=== PATIENT | female | born 1960 | race African-American/Black ===

== ENCOUNTER 2023-04-25 08:04 | Emergency (ER) | payer OTHER, SELFPAY ==
--- NOTE | ~2023-04-25 | XR_ITS ---
EXAMINATION: XR lumbar spine 2-3V DATE: 04/25/2023 09:08 INDICATION: Chronic right sciatica TECHNIQUE: Anteroposterior and lateral views of the lumbar spine, and cone-down lateral view of the l umbosacral junction were obtained. COMPARISON: None. FINDINGS: Bone alignment is normal. There is no fracture. The vertebral body heights are maintained. There is mild loss of intervertebral disc space height at L5-S1. There is mild facet joint osteoarthr itis of the lower lumbar spine. A neurostimulator device is implanted in the posterior subcutaneous t issues on the right. Its lead enters the left pelvis at the level of S3. Surgical clips in the right upper quadrant are likely from prior cholecystectomy. IMPRESSION: 1. Mild lumbar spondylosis without acute findings. Reviewed, dictated and finalized at location A.
--- NOTE | ~2023-04-25 | XR_ITS ---
EXAMINATION: XR knee RT 3V DATE: 04/25/2023 09:07 INDICATION: Right knee pain TECHNIQUE: Three views of the right knee were obtained. COMPARISON: None. FINDINGS: Alignment is normal. No fracture or osteochondral lesion. Joint spaces are normal with no e rosions. No joint effusion/synovitis. Soft tissues are unremarkable. IMPRESSION: 1. No acute osseous abnormality. Reviewed, dictated and finalized at location A.
[2023-04-25 08:11] VITALS: BP 135/91; PULSE 91; RESP 16; TEMP 36.8; O2SAT 99
[2023-04-25] MEDS: HYDROcodone/acetaminophen (*CRX) 5-325 MG TABLET 1 TAB PO (08:44)
--- NOTE | 2023-04-25 09:54 | ED.GENADULT ---
HPI - General Adult General Chief complaint: Back Pain/Injury Stated complaint: right hip injury Time Seen by Provider: 04/25/23 08:13 History of Present Illness HPI narrative: Patient is a 62-year-old female who presents ER with right low back pain and right knee pain. Reports has been a chronic issue that worsened recently. She has been on steroids that did not improve her discomfort. She would like to try something else to see if it improves her discomfort. She also reports long history of sciatica. Denies fevers or chills or sweats. No recent trauma. She has no saddle anesthesia. No difficulty with urination or defecation. No knee swelling. No redness. Pain is worsened with walking and bending. He rates from the right hip and low back down towards the knee. She also has resting knee pain. Related Data Allergies Allergy/AdvReac Type Severity Reaction Status Date / Time No Known Allergies Allergy Verified 04/25/23 08:13 Review of Systems Review of Systems: All systems reviewed & are unremarkable except as noted in HPI and below Constitutional: Constitutional: Denies chills and Denies fever(s) Musculoskeletal: Musculoskeletal: Reports back pain, Reports arthralgias, Denies joint swelling and Denies muscle cramps Integumentary/Breasts: Skin/Breast: Denies erythema, Denies rash and Denies skin ulcer Neurologic: Denies headache(s), Denies focal weakness and Denies numbness PMFSH Past Medical History Medical History (Updated 04/25/23 @ 19:41 by Jann Sharpe MD) History of fibromyalgia Sciatica Surgical History Surgical History (Updated 04/25/23 @ 19:41 by Jann Sharpe MD) History of cholecystectomy Exam Narrative: GENERAL: Well-appearing, well-nourished, and in no acute distress. HEAD: Normocephalic, atraumatic. CHEST: Clear to auscultation. No respiratory distress. HEART: Regular rate and rhythm. Normal peripheral pulses. Back: No reproducible midline tenderness to the T/L-spine. There is right paraspinal muscle pain right at the SI region in the low back. It reproduces patient's pain. EXTREMITIES: Normal range of motion. No edema. No redness or effusion of the right knee. SKIN: Warm, dry, no rash. NEURO: Alert and oriented x3. PSYCH: Normal mood and affect. Course Course Emergency Course: No real change in discomfort with [place]. Patient has already been on steroids and do not wish to add additional. Discussed addition of muscle relaxer and patient feels this is adequate. She will follow-up with her PCP. Vital Signs Vital signs: Vital Signs Temperature 98.2 F 04/25/23 08:11 Pulse Rate 91 04/25/23 08:11 Respiratory Rate 16 04/25/23 08:11 Blood Pressure 135/91 H 04/25/23 08:11 Pulse Oximetry 99 04/25/23 08:11 Temperature 98.2 F 04/25/23 08:11 Pulse Rate 91 04/25/23 08:11 Respiratory Rate 16 04/25/23 08:11 Blood Pressure 135/91 H 04/25/23 08:11 Pulse Oximetry 99 04/25/23 08:11 Medical Decision Making Vital Signs Vital Signs: Vital Signs Temperature 98.2 F 04/25/23 08:11 Pulse Rate 91 04/25/23 08:11 Respiratory Rate 16 04/25/23 08:11 Blood Pressure 135/91 H 04/25/23 08:11 Pulse Oximetry 99 04/25/23 08:11 Temperature 98.2 F 04/25/23 08:11 Pulse Rate 91 04/25/23 08:11 Respiratory Rate 16 04/25/23 08:11 Blood Pressure 135/91 H 04/25/23 08:11 Pulse Oximetry 99 04/25/23 08:11 Discharge Plan Discharge Clinical Impression: Sciatica, Knee pain Patient Disposition: Home, Self-Care Condition: Stable Instructions: Sciatica (ED), Knee Pain (ED) Additional Instructions: Return to the ER if you have increased pain in your back, you develop lower extremity weakness/numbness/paralysis, you have numbness or tingling in your private parts, or you are unable to control your ability to urinate/stool. Prescriptions: New cyclobenzaprine 10 mg tablet 10 mg PO TID PRN (Reason: musc
== END 2023-04-25 10:23 | disposition home or self-care (01) ==
PROVIDERS: Emergency Provider Emergency Medicine; PCP Family Medicine
DX: M54.41 Lumbago with sciatica, right side (principal); M25.561 Pain in right knee; M79.7 Fibromyalgia; Z90.49 Acquired absence of other specified parts of digestive tract
CPT/HCPCS: 72100; 73562; 99284; A9270

== ENCOUNTER 2023-09-03 09:02 | Emergency (ER) | payer OTHER, SELFPAY ==
--- NOTE | ~2023-09-03 | CT_ITS ---
EXAMINATION: CT abdomen pelvis w con DATE: 09/03/2023 10:54 INDICATION: Nonhealing localized abdominal pain TECHNIQUE: Computed tomography (CT) of the abdomen and pelvis was performed without intravenous contr ast. The dose-length product was 455.72 mGy-cm. Automated exposure control and iterative reconstructi on technique were employed. COMPARISON: None. FINDINGS: There is dependent atelectasis. Heart size normal. No significant pleural or pericardial ef fusion. Small fat-containing umbilical hernia. Status post cholecystectomy. The liver, spleen, pancre as, adrenal glands and right kidney are unremarkable. There is a left renal cyst. Bladder is not well distended for evaluation of bladder wall thickening. There is a left transvenous sacral stimulator l ead in the pelvis. No significant vascular abnormality. No lymphadenopathy. There are probable uterin e fibroids. Retroverted uterus. IMPRESSION: 1. Retroverted uterus with uterine fibroids. 2: No acute abdominal abnormality. Reviewed, dictated and finalized at location A.
[2023-09-03 09:10] VITALS: BP 132/76; PULSE 106; RESP 20; TEMP 37; O2SAT 99
--- NOTE | 2023-09-03 09:27 | ED.ABDPAIN ---
HPI - Abdominal Pain General Chief Complaint: Abdominal Pain Stated Complaint: abdominal pain Time Seen by Provider: 09/03/23 09:10 History of Present Illness HPI narrative: Patient is a 62-year-old female who presents to the ER with diffuse abdominal cramping. Reports it is a longstanding issue but is worsened over the last days. Spoke with her PCP and recommend she be evaluated for diverticulitis. As intermittent diarrhea. No fevers chills or sweats. No blood in stool. No emesis. No alleviating factors. Related Data Allergies Allergy/AdvReac Type Severity Reaction Status Date / Time atorvastatin Allergy Itching Verified 09/03/23 09:14 Review of Systems Review of Systems: All systems reviewed & are unremarkable except as noted in HPI and below Constitutional: Constitutional: Denies chills, Denies fatigue and Denies fever(s) Cardiovascular: Cardiovascular: Denies chest pain, Denies rapid heart rate and Denies radiating jaw, neck or arm pain Respiratory: Respiratory: Denies cough and Denies dyspnea Gastrointestinal: Gastrointestinal: Reports abdominal pain, Reports diarrhea, Denies nausea and Denies vomiting Genitourinary: Genitourinary: Reports no additional female genitourinary complaints PMFSH Past Medical History Medical History (Updated 09/03/23 @ 11:58 by Jann Sharpe MD) History of fibromyalgia Sciatica Surgical History Surgical History (Updated 04/25/23 @ 19:41 by Jann Sharpe MD) History of cholecystectomy Exam Narrative: GENERAL: Well-appearing, well-nourished, and in no acute distress. HEAD: Normocephalic, atraumatic. ENT: Mucous membranes moist. NECK: Supple. CHEST: Clear to auscultation. No respiratory distress. HEART: Regular rate and rhythm. Normal peripheral pulses. ABDOMEN: Soft, nontender, nondistended, normal active bowel sounds. EXTREMITIES: Normal range of motion. No edema. SKIN: Warm, dry, no rash. NEURO: Alert and oriented x3. PSYCH: Normal mood and affect. Course Vital Signs Vital signs: Vital Signs Temperature 98.6 F 09/03/23 09:10 Pulse Rate 106 H 09/03/23 09:10 Respiratory Rate 20 09/03/23 09:10 Blood Pressure 132/76 09/03/23 09:10 Pulse Oximetry 99 09/03/23 09:10 Oxygen Delivery Room Air 09/03/23 09:10 Temperature 97.8 F 09/03/23 11:54 Pulse Rate 86 09/03/23 11:54 Respiratory Rate 18 09/03/23 11:54 Blood Pressure 128/88 09/03/23 11:54 Pulse Oximetry 100 09/03/23 11:54 Oxygen Delivery Room Air 09/03/23 09:10 MDM - Abdominal Pain Lab Data 09/03/23 09:22 09/03/23 09:22 Labs: Lab Results 09/03/23 Range/Units 09:22 WBC 8.2 (4.5-10.0) K/mm3 RBC 4.22 (4.2-5.4) M/mm3 Hgb 12.0 (12.0-15.0) g/dL Hct 39.3 (37.0-47.0) % MCV 93.1 (80-100) fl MCH 28.4 (26-34) pg MCHC 30.5 L (32-36) g/dl RDW 13.9 (11.5-14.5) % Plt Count 352 (150-375) k/mm3 MPV 9.8 (7.4-10.4) fl Immature Gran % (Auto) 0.5 (0-0.5) % Neut % (Auto) 57.8 (45.5-73.1) % Lymph % (Auto) 34.2 (18.3-44.2) % [place] % (Auto) 6.1 (2.6-8.5) % Eos % (Auto) 1.0 (0-4.4) % Baso % (Auto) 0.4 (0.2-1.2) % Lymph # (Auto) 2.79 (0.9-3.2) K/mm3 [place] # (Auto) 0.5 (0.1-0.6) K/mm3 Eos # (Auto) 0.1 (0-0.3) K/mm3 Baso # (Auto) 0.0 (0.0-0.1) K/mm3 Abs Immat Gran (auto) 0.04 H (0.00-0.031) K/mm3 Absolute Neuts (auto) 4.7 (1.3-6.7) K/mm3 Absolute Nucleated RBC 0.0 (0.0-0.012) K/mm3 Nucleated RBC % 0.0 (0.0-0.2) % Sodium 140 (137-145) mmol/L Potassium 4.4 (3.4-5.0) mmol/L Chloride 107 (98-107) mmol/L Carbon Dioxide 28 (22-30) mmol/L Anion Gap 5 L (8-16) mmol/L BUN 13 (7-17) mg/dL Creatinine 0.70 (0.7-1.0) mg/dL Estim Creat Clear Calc 69 ml/min Estimated GFR > 60 (59 - ) Glucose 109 (65-110) mg/dL Calcium 9.2 (8.4-10.2) mg/dL Total Bilirubin 0.7 (0.2-1.3) mg/dL AST 27 (14-36) U/L ALT 9 (6-35) U/L Alkaline Phosphatase
[2023-09-03 09:29] LABS: Basophils Percent Auto 0.4 % (0.2-1.2); Eosinophils Absolute Auto 0.1 K/mm3 (0-0.3); Hematocrit 39.3 % (37.0-47.0); Immature Granulocyte Absolute 0.04 K/mm3 (0.00-0.031); Immature Granulocyte Percent A 0.5 % (0-0.5); Lymphocytes Absolute Auto 2.79 K/mm3 (0.9-3.2); Lymphocytes Percent Auto 34.2 % (18.3-44.2); Mean Corpuscular HGB Conc 30.5 g/dl (32-36); Mean Corpuscular Hemoglobin 28.4 pg (26-34); Mean Corpuscular Volume 93.1 fl (80-100); Mean Platelet Volume 9.8 fl (7.4-10.4); Monocytes Absolute Auto 0.5 K/mm3 (0.1-0.6); Monocytes Percent Auto 6.1 % (2.6-8.5); Neutrophils Absolute Auto 4.7 K/mm3 (1.3-6.7); Neutrophils Percent Auto 57.8 % (45.5-73.1); Platelet Count Result 352 k/mm3 (150-375); Red Blood Count 4.22 M/mm3 (4.2-5.4); Red Cell Distribution Width 13.9 % (11.5-14.5); White Blood Count 8.2 K/mm3 (4.5-10.0)
[2023-09-03] MEDS: DICYCLOMINE HCL INJ 20 MG/2 ML VIAL IM (09:32)
[2023-09-03 09:41] LABS: Alanine Aminotransferase 9 U/L (6-35); Albumin Level 4.4 g/dL (3.5-5.1); Alkaline Phosphatase 85 U/L (38-126); Anion Gap 5 mmol/L (8-16); Aspartate Amino Transferase 27 U/L (14-36); Bilirubin,Total 0.7 mg/dL (0.2-1.3); Blood Urea Nitrogen 13 mg/dL (7-17); Calcium 9.2 mg/dL (8.4-10.2); Carbon Dioxide 28 mmol/L (22-30); Chloride 107 mmol/L (98-107); Estimated CRCL calculation 69 ml/min; Estimated Glomerular Filt Rate > 60; Glucose 109 mg/dL (65-110); Lipase 44 U/L (23-300); Potassium 4.4 mmol/L (3.4-5.0); Sodium 140 mmol/L (137-145)
[2023-09-03 10:05] LABS: Appearance Urine Cloudy (Clear); Bacteria Urine None Seen /hpf; Bilirubin Urine Negative (Negative); Blood Urine Negative (Negative); Color Urine Yellow (Yellow); Glucose Urine UA Negative (Negative); Ketones Urine Negative (Negative); Leukocyte Esterase Ur 1+ LEU/UL (Negative); Need Manual Microscopic Reviewed; Nitrate Urine Negative (Negative); Non Pathogenic Casts 0-2; Protein Urine Negative (Negative); RBC Urine 0-2 /hpf (0-2); Specific Grav Ur 1.011 (1.001-1.035); Squamous Epithelial Cell Urine Occasional /hpf (Few); Urobilinogen Urine 0.2 mg/dL (<2.0); WBC Urine 0-5 /hpf
[2023-09-03 10:12] LABS: Add Urine Microscopic? YES
[2023-09-03 11:54] VITALS: BP 128/88; PULSE 86; RESP 18; TEMP 36.6; O2SAT 100
== END 2023-09-03 12:06 | disposition home or self-care (01) ==
PROVIDERS: Emergency Provider Emergency Medicine; PCP Family Medicine
DX: R10.9 Unspecified abdominal pain (principal); M79.7 Fibromyalgia; Z90.49 Acquired absence of other specified parts of digestive tract; N85.4 Malposition of uterus; D25.9 Leiomyoma of uterus, unspecified
CPT/HCPCS: 36415; 74177; 80053; 81001; 83690; 85025; 96372; 99284; J0500; Q9967

== ENCOUNTER 2023-12-10 14:33 | Observation (INO) | payer OTHER, SELFPAY ==
[2023-12-10] VITALS (12 sets, daily range): BP systolic 119–150; BP diastolic 71–138; PULSE 76–89; RESP 15–18; TEMP 36.3; O2SAT 97–100; BMI 26.1
--- NOTE | ~2023-12-10 | CT_ITS ---
EXAMINATION: CT abdomen pelvis w con DATE: 12/10/2023 19:54 INDICATION: epigastric/LUQ pain TECHNIQUE: Computed tomography (CT) of the abdomen and pelvis was performed with 100 mL Omnipaque-350 intravenous contrast. Automated exposure control and iterative reconstruction technique were employe d. The dose-length product was 376.96 mGy-cm. COMPARISON: 09/03/2023. FINDINGS: Lower thorax: Dependent scar/atelectasis. Small hiatal hernia Liver: Normal. Biliary/Gallbladder: Gallbladder is absent. No bile duct dilation. Pancreas: No mass or duct dilation. Spleen: Normal. Adrenals:No mass. Kidneys: No suspicious mass, obstructing stone, or hydronephrosis. Simple left upper pole cyst. GI tract: Mild distal esophageal and gastric wall edema. No small or large bowel dilation. Dilated ap pendix with surrounding inflammatory change. No evidence of wall breakdown or periappendiceal abscess . Mesentery/Peritoneum: No ascites, mass, or free air. Retroperitoneum: No mass. Atherosclerotic abdominal aortic and/or arterial calcifications. Pelvis: Normal urinary bladder. Retroverted uterus with multiple fibroids. Soft Tissues: Right posterior generator pack, lead terminating over the left sacrum. Bones: No acute osseous finding. IMPRESSION: Acute uncomplicated appendicitis. Mild esophagitis/gastritis. Reviewed, dictated and finalized at location K. [employer]
--- NOTE | 2023-12-10 19:23 | ED.NAVMDI ---
HPI - Nausea/Vomiting/Diarrhea General Chief complaint: Nausea/Vomiting/Diarrhea Stated complaint: food poisoning Time Seen by Provider: 12/10/23 18:59 History of Present Illness HPI Narrative: Patient is a 63-year-old female presenting with abdominal pain. States that she woke up this morning with severe upper abdominal pain associated with several episodes of emesis. States that she had 2 bowel movements that were normal. No hematochezia or melena. No hematemesis. States that she does have chronic GI issues and she follows with a GI doctor. States that she has never had pain like this before though. Currently, she states that the pain has actually improved a lot. She is currently not nauseated. Denies fevers, chest pain, shortness of breath, cough, dysuria, hematuria, flank pain. Related Data Home Medications Medication Instructions Recorded Confirmed azelastine 137 mcg (0.1 %) nasal 137 mcg intranasal PRN 12/10/23 12/10/23 spray aerosol cetirizine 10 mg tablet 10 mg PO DAILY 12/10/23 12/11/23 famotidine 40 mg tablet 40 mg PO BID 12/10/23 12/10/23 gabapentin 100 mg capsule 100 mg PO BID 12/10/23 12/11/23 metoprolol succinate 50 mg 50 mg PO DAILY 12/10/23 12/11/23 tablet,extended release 24 hr promethazine 25 mg tablet 25 mg PO Q6H PRN nausea 12/10/23 12/11/23 dicyclomine 10 mg capsule 10 mg PO QID PRN Abdominal Pain 12/11/23 12/11/23 indomethacin 50 mg capsule 50 mg PO BID 12/11/23 12/11/23 magnesium 400 tablet PO DAILY 12/11/23 12/11/23 nortriptyline 10 mg capsule 30 mg PO HS 12/11/23 12/11/23 Allergies Allergy/AdvReac Type Severity Reaction Status Date / Time atorvastatin Allergy Itching Verified 12/10/23 23:41 Review of Systems Review of Systems: All systems reviewed & are unremarkable except as noted in HPI and below PMFSH Past Medical History Medical History Asthma GERD (gastroesophageal reflux disease) History of fibromyalgia Hypertension Hypothyroidism Parkinson disease Sciatica Surgical History Surgical History History of cholecystectomy Social History Social History Smoking status: Never smoker Alcohol intake: former Substance use: never Do You Feel Safe in your Home?: Yes Lack of Transportation: No Lack of Food: Never True Current Housing: I Have Housing Concerned About Future Housing: No Difficulty Paying Gas/Electric Bills: No Difficulty Paying for Meds: No Currently Unemployed: No Education: Bachelor's Degree Difficulty w/ Childcare or Family Care: No Spiritual care concerns: No Exam Narrative: GENERAL: Well-appearing, in no acute distress, pleasant cooperative HEAD: Normocephalic, atraumatic. EYES: PERRLA and EOMI. ENT: Mucous membranes moist. NECK: Supple. CHEST: Clear to auscultation. No respiratory distress. HEART: Regular rate and rhythm ABDOMEN: Soft, mild tenderness in epigastrium and left upper quadrant without guarding or rebound EXTREMITIES: Normal range of motion. SKIN: Warm, dry, no rash. NEURO: Alert and oriented x3. PSYCH: Normal mood and affect. Course Vital Signs Vital signs: Vital Signs Temperature 97.3 F L 12/10/23 14:59 Pulse Rate 79 12/10/23 14:59 Respiratory Rate 18 12/10/23 14:59 Blood Pressure 119/71 12/10/23 14:59 Pulse Oximetry 100 12/10/23 14:59 Oxygen Delivery Room Air 12/10/23 14:59 Temperature 97 F L 12/11/23 10:38 Pulse Rate 73 12/11/23 12:05 Respiratory Rate 12 12/11/23 12:05 Blood Pressure 133/73 12/11/23 12:05 Pulse Oximetry 100 12/11/23 12:05 Oxygen Delivery Nasal Cannula 12/11/23 12:05 Oxygen Flow Rate 2 12/11/23 12:05 MDM - Nausea/Vomiting/Diarrhea MDM Narrative Medical decision making narrative: Patient is a 63-year-old female presenting with abdominal pain. Vitals are stable. Exa
[2023-12-10 19:27] LABS: Basophils Absolute Auto 0.1 K/mm3 (0.0-0.1); Basophils Percent Auto 0.5 % (0.2-1.2); Eosinophils Percent Auto 0.1 % (0-4.4); Hematocrit 37.8 % (37.0-47.0); Hemoglobin 11.9 g/dL (12.0-15.0); Immature Granulocyte Absolute 0.07 K/mm3 (0.00-0.031); Immature Granulocyte Percent A 0.4 % (0-0.5); Lymphocytes Absolute Auto 1.22 K/mm3 (0.9-3.2); Lymphocytes Percent Auto 7.3 % (18.3-44.2); Mean Corpuscular HGB Conc 31.5 g/dl (32-36); Mean Corpuscular Hemoglobin 28.5 pg (26-34); Mean Corpuscular Volume 90.4 fl (80-100); Monocytes Absolute Auto 0.9 K/mm3 (0.1-0.6); Monocytes Percent Auto 5.2 % (2.6-8.5); Neutrophils Absolute Auto 14.5 K/mm3 (1.3-6.7); Neutrophils Percent Auto 86.5 % (45.5-73.1); Platelet Count Result 291 k/mm3 (150-375); Red Blood Count 4.18 M/mm3 (4.2-5.4); Red Cell Distribution Width 13.6 % (11.5-14.5); White Blood Count 16.7 K/mm3 (4.5-10.0)
[2023-12-10 19:31] LABS: Appearance Urine Clear (Clear); Bacteria Urine None Seen /hpf; Bilirubin Urine Negative (Negative); Blood Urine Negative (Negative); Color Urine Yellow (Yellow); Glucose Urine UA Negative (Negative); Ketones Urine Negative (Negative); Leukocyte Esterase Ur 1+ LEU/UL (Negative); Nitrate Urine Negative (Negative); Non Pathogenic Casts 0-2; Protein Urine Negative (Negative); RBC Urine 0-2 /hpf (0-2); Specific Grav Ur 1.016 (1.001-1.035); Squamous Epithelial Cell Urine None seen /hpf (Few); Urobilinogen Urine 0.2 mg/dL (<2.0); pH Urine 7.5 (5.0-9.0)
[2023-12-10 19:36] LABS: Alanine Aminotransferase 28 U/L (6-35); Albumin Level 4.3 g/dL (3.5-5.1); Alkaline Phosphatase 95 U/L (38-126); Anion Gap 7 mmol/L (8-16); Aspartate Amino Transferase 23 U/L (14-36); Bilirubin,Total 0.6 mg/dL (0.2-1.3); Blood Urea Nitrogen 12 mg/dL (7-17); Calcium 9.4 mg/dL (8.4-10.2); Carbon Dioxide 29 mmol/L (22-30); Chloride 104 mmol/L (98-107); Estimated Glomerular Filt Rate > 60; Glucose 121 mg/dL (65-110); Lipase 23 U/L (23-300); Potassium 4.5 mmol/L (3.4-5.0); Sodium 140 mmol/L (137-145)
[2023-12-10] MEDS: SODIUM CHLORIDE 0.9% IV 1,000 ML 999 ML IV CONT (20:02)
[2023-12-10 20:07] LABS: Add Urine Microscopic? YES
[2023-12-10] MEDS: metroNIDAZOLE 500 MG/ISO 100ML 500 MG/100 ML BAG 100 MG IVPB (21:12)
[2023-12-10] MEDS: cefTRIAXone 2 GM/NS 100 ML 2 GM/100 ML BAG IVPB (21:12)
--- NOTE | 2023-12-10 21:12 | PM.IMHP ---
H&P: HPI History of Present Illness Date/Time: 12/10/23 21:12 Chief Complaint: Abdominal pain, nausea and diarrhea Narrative: Patient presented emergency department for evaluation of abdominal pain, nausea and diarrhea. She states she has similar symptoms some days ago however today pain was worse, sharp, localized on the right lower quadrant, rated 8/10 in severity, no fever no chills, she had a bowel movement but was normal. She was evaluated in the ER found to have leukocytosis repeat CT scan findings of possible appendicitis, patient was given pain control, IV hydration, IV antibiotic-Rocephin and Flagyl and General surgery consulted. She denies any pain currently, no nausea or diarrhea. Review of Systems Review of Systems: All systems reviewed & are unremarkable except as noted in HPI and below PMFSH Past Medical History Medical History History of fibromyalgia Sciatica Surgical History Surgical History History of cholecystectomy Meds Home Medications and Allergies Home Medications Medication Instructions Recorded Confirmed Type cyclobenzaprine 10 mg tablet 10 mg PO TID PRN muscle spasm #20 04/25/23 Rx tabs dicyclomine 20 mg tablet 20 mg PO QID #20 tabs 09/03/23 Rx Allergies Allergy/AdvReac Type Severity Reaction Status Date / Time atorvastatin Allergy Itching Verified 09/03/23 09:14 Vital Signs Vital Signs - 24 hr 12/10/23 14:59 12/10/23 20:02 Temperature 97.3 F L Pulse Rate 79 88 Respiratory Rate 18 16 Blood Pressure 119/71 123/73 Pulse Oximetry 100 97 Oxygen Delivery Room Air Exam Narrative: General: Alert and oriented x4, not in distress HEENT: Normocephalic atraumatic EOMI Respiratory: Clear to auscultation bilaterally Cardiovascular: Regular rate and rhythm normal no gallop no edema Gastrointestinal: Soft more distended, right lower quadrant tenderness that is mild, normal bowel sounds Musculoskeletal/skin: Range of motion intact in all extremities, no rashes Neurologic: No focal deficit H&P: Results Labs Labs: Short CBC 12/10/23 Range/Units 19:19 WBC 16.7 H (4.5-10.0) K/mm3 Hgb 11.9 L (12.0-15.0) g/dL Hct 37.8 (37.0-47.0) % Plt Count 291 (150-375) k/mm3 BMP 12/10/23 19:19 Sodium 140 Potassium 4.5 Chloride 104 Carbon Dioxide 29 BUN 12 Creatinine 0.70 Glucose 121 H Calcium 9.4 Liver Function 12/10/23 Range/Units 19:19 Total Bilirubin 0.6 (0.2-1.3) mg/dL AST 23 (14-36) U/L ALT 28 (6-35) U/L Alkaline Phosphatase 95 (38-126) U/L Albumin 4.3 (3.5-5.1) g/dL Urine 12/10/23 Range/Units 19:19 Urine Color Yellow (Yellow) Urine Appearance Clear (Clear) Urine pH 7.5 (5.0-9.0) Ur Specific [place] 1.016 (1.001-1.035) Urine Protein Negative (Negative) mg/dL Urine Glucose (UA) Negative (Negative) mg/dL Assessment and Plan Assessment and plan (1) Acute appendicitis: Code(s): K35.80 - Unspecified acute appendicitis Status: Acute Plan Patient will be admitted to [facility] [place], continue IV hydration, NPO after midnight, continue Rocephin and Flagyl, pain control as needed, general surgery consulted for possible appendectomy in the morning Quality If No VTE Prophylaxis Answer both mechanical and pharmacologic: Reason no mechanical VTE proph: low risk/not indicated Reason no pharmacologic proph: low risk/not indicated (patient undergoing surgery tomorrow) AM H&P [facility] H&P: [id number] Initial Admit Mod
--- NOTE | 2023-12-10 23:25 | ADMGEN ---
This patient, Flory Coker, was admitted to [facility] Surg Room 323-01. Patient/family oriented to hospital policies and general routines including ID bracelet, bed and alarms, visiting hours, pain management, procedures, bathroom and other care routines, personal items, smoking policy, room service/diet, and visiting hours. Information on how to activate the Rapid Response Team has been discussed. Patient/Family are encouraged to report perceived risks to care and to ask questions if they do not understand what they are told or what they should do.
[2023-12-11] VITALS (10 sets, daily range): BP systolic 117–133; BP diastolic 55–82; PULSE 73–91; RESP 12–19; TEMP 36.1–36.4; O2SAT 95–100
[2023-12-11] MEDS: MORPHINE SULFATE (*CRX) 2 MG/ML INJ IV PUSH ×2 (06:09→13:23)
[2023-12-11] MEDS: metroNIDAZOLE 500 MG/ISO 100ML 500 MG/100 ML BAG 100 MG IVPB (06:32)
[2023-12-11 07:19] LABS: Basophils Absolute Auto 0.1 K/mm3 (0.0-0.1); Basophils Percent Auto 0.5 % (0.2-1.2); Eosinophils Percent Auto 0.3 % (0-4.4); Hematocrit 37.3 % (37.0-47.0); Hemoglobin 11.3 g/dL (12.0-15.0); Immature Granulocyte Absolute 0.05 K/mm3 (0.00-0.031); Immature Granulocyte Percent A 0.4 % (0-0.5); Lymphocytes Absolute Auto 1.85 K/mm3 (0.9-3.2); Lymphocytes Percent Auto 16.1 % (18.3-44.2); Mean Corpuscular HGB Conc 30.3 g/dl (32-36); Mean Corpuscular Hemoglobin 28.3 pg (26-34); Mean Corpuscular Volume 93.3 fl (80-100); Mean Platelet Volume 10.1 fl (7.4-10.4); Monocytes Absolute Auto 0.6 K/mm3 (0.1-0.6); Monocytes Percent Auto 5.1 % (2.6-8.5); Neutrophils Absolute Auto 8.9 K/mm3 (1.3-6.7); Neutrophils Percent Auto 77.6 % (45.5-73.1); Platelet Count Result 263 k/mm3 (150-375); White Blood Count 11.5 K/mm3 (4.5-10.0)
[2023-12-11 07:30] LABS: Anion Gap 8 mmol/L (8-16); Blood Urea Nitrogen 9 mg/dL (7-17); Calcium 8.9 mg/dL (8.4-10.2); Carbon Dioxide 25 mmol/L (22-30); Chloride 108 mmol/L (98-107); Estimated CRCL calculation 68 ml/min; Estimated Glomerular Filt Rate > 60; Glucose 98 mg/dL (65-110); Potassium 3.8 mmol/L (3.4-5.0); Sodium 141 mmol/L (137-145)
--- NOTE | 2023-12-11 09:04 | WPDANESEPPF ---
Anes - Initial Pre Proc Eval Procedure: Operation Date: 12/11/23 10:00 Proposed Procedures p Laparoscopic Appendectomy - Masha Ellington MD Date/Time: 12/11/23 09:04 Surgeon: Chandana Pre Op Diagnosis: Acute appendicitis Patient Data Age: 63 Gender: F Height: 1.68 m Weight: 73.5 kg Last Vital Signs Temp 36.4 C L 12/11/23 08:38 Pulse 87 12/11/23 08:38 Resp 16 12/11/23 08:38 BP 132/82 12/11/23 08:38 Pulse Ox 100 12/11/23 08:38 O2 Del Method Room Air 12/11/23 00:39 Allergies Allergy/AdvReac Type Severity Reaction Status Date / Time atorvastatin Allergy Itching Verified 12/10/23 23:41 Home Medications Medication Instructions Recorded Confirmed Type cyclobenzaprine 10 mg tablet 10 mg PO TID PRN muscle spasm #20 04/25/23 Rx tabs azelastine 137 mcg (0.1 %) nasal 137 mcg intranasal PRN 12/10/23 12/10/23 History spray aerosol cetirizine 10 mg tablet 10 mg PO DAILY 12/10/23 12/11/23 History famotidine 40 mg tablet 40 mg PO BID 12/10/23 12/10/23 History gabapentin 100 mg capsule 100 mg PO BID 12/10/23 12/11/23 History metoprolol succinate 50 mg 50 mg PO DAILY 12/10/23 12/11/23 History tablet,extended release 24 hr promethazine 25 mg tablet 25 mg PO Q6H PRN nausea 12/10/23 12/11/23 History dicyclomine 10 mg capsule 10 mg PO QID PRN Abdominal Pain 12/11/23 12/11/23 History indomethacin 50 mg capsule 50 mg PO BID 12/11/23 12/11/23 History magnesium 400 tablet PO DAILY 12/11/23 12/11/23 History nortriptyline 10 mg capsule 30 mg PO HS 12/11/23 12/11/23 History Laboratory Tests 12/10/23 12/11/23 19:19 06:54 WBC 16.7 H K/mm3 11.5 H K/mm3 (4.5-10.0) (4.5-10.0) RBC 4.18 L M/mm3 4.00 L M/mm3 (4.2-5.4) (4.2-5.4) Hgb 11.9 L g/dL 11.3 L g/dL (12.0-15.0) (12.0-15.0) Hct 37.8 % 37.3 % (37.0-47.0) (37.0-47.0) MCV 90.4 fl 93.3 fl (80-100) (80-100) MCH 28.5 pg 28.3 pg (26-34) (26-34) MCHC 31.5 L g/dl 30.3 L g/dl (32-36) (32-36) RDW 13.6 % 14.0 % (11.5-14.5) (11.5-14.5) Plt Count 291 k/mm3 263 k/mm3 (150-375) (150-375) MPV 10.0 fl 10.1 fl (7.4-10.4) (7.4-10.4) Immature Gran % (Auto) 0.4 % 0.4 % (0-0.5) (0-0.5) Neut % (Auto) 86.5 H % 77.6 H % (45.5-73.1) (45.5-73.1) Lymph % (Auto) 7.3 L % 16.1 L % (18.3-44.2) (18.3-44.2) [place] % (Auto) 5.2 % 5.1 % (2.6-8.5) (2.6-8.5) Eos % (Auto) 0.1 % 0.3 % (0-4.4) (0-4.4) Baso % (Auto) 0.5 % 0.5 % (0.2-1.2) (0.2-1.2) Lymph # (Auto) 1.22 K/mm3 1.85 K/mm3 (0.9-3.2) (0.9-3.2) [place] # (Auto) 0.9 H K/mm3 0.6 K/mm3 (0.1-0.6) (0.1-0.6) Eos # (Auto) 0.0 K/mm3 0.0 K/mm3 (0-0.3) (0-0.3) Baso # (Auto) 0.1 K/mm3 0.1 K/mm3 (0.0-0.1) (0.0-0.1) Abs Immat Gran (auto) 0.07 H K/mm3 0.05 H K/mm3 (0.00-0.031) (0.00-0.031) Absolute Neuts (auto) 14.5 H K/mm3 8.9 H K/mm3 (1.3-6.7) (1.3-6.7) Absolute Nucleated RBC 0.0 K/mm3 0.0 K/mm3 (0.0-0.012) (0.0-0.012) Nucleated RBC % 0.0 % 0.0 % (0.0-0.2) (0.0-0.2) Sodium 140 mmol/L 141 mmol/L (137-145) (137-145) Potassium 4.5 mmol/L 3.8 mmol/L (3.4-5.0) (3.4-5.0) Chloride 104 mmol/L 108 H mmol/L (98-107) (98-107) Carbon Dioxide 29 mmol/L 25 mmol/L (22-30) (22-30) Anion Gap 7 L mmol/L 8 mmol/L (8-16) (8-16) BUN 12 mg/dL 9 mg/dL (7-17) (7-17) Creatinine 0.70 mg/dL 0.70 mg/dL (0.7-1.0) (0.7-1.0) Estim Creat Clear Calc Not Reportable 68 ml/min Estimated GFR > 60 > 60 (59 - ) (59 - ) Glucose 121 H mg/dL 98 mg/dL (65-110) (65-110) Calcium 9.4 mg/dL 8.9 mg/dL (8.4-10.2) (8.4-10.2) Total Bilirubin 0.6 mg/dL (0.2-1.3) AST 23 U/L (14-36) ALT 28 U/L (6-35) Alkaline Phosphatase 95 U/L (38-126) Total Protein 7.0 g/dL (6.3-8.2) Albumin 4.3 g/dL (3.5-5.1) Lipase 23 U/L (23-300) Urine Color [place]
--- NOTE | 2023-12-11 09:12 | PM.CNGS ---
Assessment and Plan Assessment and plan (1) Acute appendicitis: Code(s): K35.80 - Unspecified acute appendicitis Status: Acute Assessment and Plan: Set up for emergent appendectomy in operating room, NPO, IV antibiotics History of Present Illness Consult details Consult date: 12/11/23 Reason for consult: abdominal pain Requesting physician: Sari Deleon MD Narrative: The pt is a 63 y/o F presenting to the emergency department complaining of right lower quadrant abdominal pain. The patient reports the pain started acutely yesterday and was associated with nausea, anorexia, diarrhea. Patient denies any fevers, chills. The patient reports the pain is localized in the right lower quadrant and is constant and sharp. The patient reports this morning, she still has some achiness in her right lower quadrant but pain is largely resolved. Workup in the emergency department, including imaging, is significant acute appendicitis. Review of Systems Review of Systems: All systems reviewed & are unremarkable except as noted in HPI and below PMFSH Past Medical History Medical History Asthma GERD (gastroesophageal reflux disease) History of fibromyalgia Hypertension Hypothyroidism Parkinson disease Sciatica Surgical History Surgical History History of cholecystectomy Social History Social History Smoking status: Never smoker Alcohol intake: former Substance use: never Do You Feel Safe in your Home?: Yes Lack of Transportation: No Lack of Food: Never True Current Housing: I Have Housing Concerned About Future Housing: No Difficulty Paying Gas/Electric Bills: No Difficulty Paying for Meds: No Currently Unemployed: No Education: Bachelor's Degree Difficulty w/ Childcare or Family Care: No Spiritual care concerns: No Meds Home Medications and Allergies Home Medications Medication Instructions Recorded Confirmed Type cyclobenzaprine 10 mg tablet 10 mg PO TID PRN muscle spasm #20 04/25/23 Rx tabs azelastine 137 mcg (0.1 %) nasal 137 mcg intranasal PRN 12/10/23 12/10/23 History spray aerosol cetirizine 10 mg tablet 10 mg PO DAILY 12/10/23 12/11/23 History famotidine 40 mg tablet 40 mg PO BID 12/10/23 12/10/23 History gabapentin 100 mg capsule 100 mg PO BID 12/10/23 12/11/23 History metoprolol succinate 50 mg 50 mg PO DAILY 12/10/23 12/11/23 History tablet,extended release 24 hr promethazine 25 mg tablet 25 mg PO Q6H PRN nausea 12/10/23 12/11/23 History dicyclomine 10 mg capsule 10 mg PO QID PRN Abdominal Pain 12/11/23 12/11/23 History indomethacin 50 mg capsule 50 mg PO BID 12/11/23 12/11/23 History magnesium 400 tablet PO DAILY 12/11/23 12/11/23 History nortriptyline 10 mg capsule 30 mg PO HS 12/11/23 12/11/23 History Allergies Allergy/AdvReac Type Severity Reaction Status Date / Time atorvastatin Allergy Itching Verified 12/10/23 23:41 Vital Signs Vital Signs - 24 hr 12/10/23 14:59 12/10/23 20:02 12/10/23 20:03 Temperature 36.3 C L Pulse Rate 79 88 Respiratory Rate 18 16 Blood Pressure 119/71 123/73 Pulse Oximetry 100 97 97 Oxygen Delivery Room Air 12/10/23 20:04 12/10/23 20:15 12/10/23 20:16 Temperature Pulse Rate 89 Respiratory Rate 15 Blood Pressure 123/73 132/76 Pulse Oximetry 98 99 100 Oxygen Delivery 12/10/23 20:30 12/10/23 20:33 12/10/23 20:45 Temperature Pulse Rate Respiratory Rate Blood Pressure 150/138 H Pulse Oximetry 100 100 98 Oxygen Delivery 12/10/23 20:47 12/10/23 20:48 12/10/23 22:35 Temperature Pulse Rate 76 Respiratory Rate 15 Blood Pressure 124/75 121/76 Pulse Oximetry 98 99 100 Oxygen Delivery 12/11/23 00:39 12/11/23 05:50 12/11/23 08:38 Temperature 36.2 C L 36.4 C L Pulse Rate 86 87 Re
--- NOTE | 2023-12-11 09:17 | WPDHPUPDATE1 ---
History and Physical Update Update Date/Time: 12/11/23 09:17 History and Physical has been reviewed, including an updated exam of the patient. There are NO changes in the patient's condition. Risks, benefits, and alternatives have been discussed and questions answered. Patient agrees to proceed with procedure.
[2023-12-11] MEDS: BUPIVACAINE/EPINEPHRINE 0.5% 50 ML VIAL 30 ML INFILTRATE (09:58)
--- NOTE | 2023-12-11 10:43 | P.OP_ITS ---
Procedure Note - Detailed Date of Procedure 12/11/23 Pre-op Diagnosis Acute appendicitis Post-op Diagnosis Same Procedure Performed Laparoscopic appendectomy Surgeon Masha Ellington MD Anesthesia General Indications 63-year-old female presenting to the emergency department with acute appendicitis Findings Acute uncomplicated appendicitis Description of Procedure The patient was taken to the operating room and placed in the supine position. After adequate induction of general anesthesia, the patient was prepped and draped in the normal sterile fashion. A time-out was then done to verify the patient's identity, as well as the procedure being performed. Began by making a 5 mm incision in the infraumbilical region. Through this a Veress needle was placed in the peritoneal cavity and CO2 gas was insufflated. After adequate pneumoperitoneum was achieved, the Veress needle was removed and a 5 mm port trocar was placed through this incision. I then placed the laparoscopic through this trocar and under direct visualization placed 2 further 5 mm suprapubic port, as well as an additional 12 mm port in the left lower abdomen. At this point, the cecum was identified and retracted both medially and cephalad. This allowed us to expose the appendix. The appendix was noted to be inflamed and injected, however no obvious perforation was noted. I was then able to grasp the tip of the appendix and retract this laterally and anteriorly. This allowed us to expose the base of the appendix with the cecum. At this point I created a window between the appendix and the mesoappendix using a Danii bisector. Once accomplished, I transected the mesoappendix with a white vascular staple load. The stapler was then re-loaded with a blue thick tissue staple load and this was used to transect the base of the appendix with the cecum. I then placed the appendiceal specimen in an endo-pouch and removed this through the 12 mm port site. The specimen will now be sent to pathology for further review. I then copiously irrigated the right lower quadrant. No other pathology was noted and both staple lines were noted to be intact and hemostatic. I then proceeded to close the fascia of the 12 mm left lower quadrant port site with a Crescencio cone an 0 Vicryl suture. The abdomen was then desufflated and all ports removed. All port sites were then closed with 4-0 Monocryl subcuticular suture. Dermabo nd was placed on all wounds. The patient tolerated the procedure well and was extubated postoperatively. She will be transferred to the recovery room in stable condition. Estimated Blood Loss 5 Drains No Packing No Pathology Yes Complications No immediate complications Condition Stable Disposition PACU [facility] Billing Surgery - Charge Forward: Surgery Billing
[2023-12-11] MEDS: LACTATED RINGERS 1,000 ML 30 ML IV CONT (11:08)
[2023-12-11] MEDS: fentaNYL CITRATE INJ (*CRX) 100 MCG/2 ML VIAL 25 MCG IV PUSH ×4 (11:08→11:37)
--- NOTE | 2023-12-11 16:05 | PM.IMPN ---
Progress Note: A&P Assessment and Plan (1) Acute appendicitis: Code(s): K35.80 - Unspecified acute appendicitis Status: Acute Assessment and Plan: Presented to ER with severe upper abdominal pain associated with several episodes of emesis. CT abdomen pelvis concerning for acute appendicitis. Patient covered with Flagyl and Rocephin by ER General surgery consulted Laparoscopic Appendectomy preformed today by Dr Ellington Denies pain, admits abdominal tenderness at trocar sites Continue to follow order per general surgery (2) Hypertension: Code(s): I10 - Essential (primary) hypertension Status: Acute Assessment and Plan: Patient has been normotensive during admission Continue home BP medications Toprol XL Continue to monitor (3) GERD (gastroesophageal reflux disease): Code(s): K21.9 - Gastro-esophageal reflux disease without esophagitis Status: Acute Assessment and Plan: Patient denies symptoms, denies nausea at this time Continue home medications of Pepcid and Mag-Ox HOB elevated as needed. Continue to monitor. Time Spent With Patient Time with patient: 15 - 25 minutes Subjective Date/time seen: 12/11/23 1505 Interval history: 63 year old female seen today at bedside in interval assessment after admission for acute appendicitis. She presented to ER with abdominal pain nausea and diarrhea. CT showed acute appendicitis. She was addmitted for IV hydration, abx, pain control and General surgery consult. Patient underwent laparoscopic appendectomy in OR with Dr Ellington this morning. Today upon assessment patient presents with intermittent confusion upon awakening after surgery most likely due to anesthesia. Patient stated she thought she was at home and forgot she had surgery at this time. Patient denies pain, but stated abdomen is sore at incisional sites. She denies and nausea, chest pain or shortness of breath at this time. Continue pain control measures and orders per general surgery recommendations. Continue to monitor. Review of Systems Review of Systems: All systems reviewed & are unremarkable except as noted in HPI and below Exam Narrative: General: Episode of confusion- likely due to anesthesia, Alert and oriented x 2 upon awakening, no acute distress HEENT: Normocephalic atraumatic EOMI, FROM Respiratory: Clear to auscultation bilaterally, respirations non-labored, BS equal Cardiovascular: Regular rate and rhythm normal no murmur or gallop no edema Gastrointestinal: Soft, non-distended, tender, hypoactive bowel sounds Musculoskeletal/skin: Range of motion intact in all extremities, no rashes Neurologic: alert and oriented x 2 upon awakening Psych: normal mood and affect, pleasant Objective Data Vital Signs Vital Signs: Vital Signs - 24 hr 12/10/23 20:02 12/10/23 20:03 12/10/23 20:04 Temperature Pulse Rate 88 Respiratory Rate 16 Blood Pressure 123/73 123/73 Pulse Oximetry 97 97 98 Oxygen Delivery Oxygen Flow Rate 12/10/23 20:15 12/10/23 20:16 12/10/23 20:30 Temperature Pulse Rate 89 Respiratory Rate 15 Blood Pressure 132/76 Pulse Oximetry 99 100 100 Oxygen Delivery Oxygen Flow Rate 12/10/23 20:33 12/10/23 20:45 12/10/23 20:47 Temperature Pulse Rate Respiratory Rate Blood Pressure 150/138 H 124/75 Pulse Oximetry 100 98 98 Oxygen Delivery Oxygen Flow Rate 12/10/23 20:48 12/10/23 22:35 12/11/23 00:39 Temperature Pulse Rate 76 Respiratory Rate 15 Blood Pressure 121/76 Pulse Oximetry 99 100 Oxygen Delivery Room Air Oxygen Flow Rate 12/11/23 05:50 12/11/23 08:38 12/11/23 10:38 Temperature 97.2 F L 97.5 F L 97 F L Pulse Rate 86 87 75 Respiratory Rate 13 16 12 Blood Pressure 122/76 132/82 117/66 Pulse Oximetry 100 100 97 Oxygen Delivery Simple Face Mask Oxygen Flow Rate 8 12/11/23 10:50 12/11/23 11:05 12/11/23 11:20 Temperature
[2023-12-11] MEDS: AZELASTINE HCL NASAL 0.1% 137 MCG/SPR 30 ML BTL 1 SPRAY NASAL (16:40)
[2023-12-11] MEDS: FAMOTIDINE 20 MG TABLET 40 MG PO (16:41)
[2023-12-11] MEDS: INDOMETHACIN 25 MG CAPSULE 50 MG PO (16:41)
[2023-12-11] MEDS: GABAPENTIN 100 MG CAPSULE PO (16:41)
[2023-12-11] MEDS: HYDROcodone/acetaminophen (*CRX) 5-325 MG TABLET 1 TAB PO ×2 (16:49→20:55)
[2023-12-11] MEDS: DICYCLOMINE HCL 10 MG CAPSULE PO (17:11)
[2023-12-12 06:29] LABS: Hematocrit 35.8 % (37.0-47.0); Mean Corpuscular HGB Conc 30.7 g/dl (32-36); Mean Corpuscular Hemoglobin 28.5 pg (26-34); Mean Corpuscular Volume 92.7 fl (80-100); Mean Platelet Volume 9.6 fl (7.4-10.4); Platelet Count Result 280 k/mm3 (150-375); Red Blood Count 3.86 M/mm3 (4.2-5.4); Red Cell Distribution Width 13.8 % (11.5-14.5); White Blood Count 9.3 K/mm3 (4.5-10.0)
[2023-12-12] MEDS: HYDROcodone/acetaminophen (*CRX) 5-325 MG TABLET 1 TAB PO (06:43)
[2023-12-12 07:10] LABS: Alanine Aminotransferase 10 U/L (6-35); Albumin Level 3.7 g/dL (3.5-5.1); Alkaline Phosphatase 76 U/L (38-126); Anion Gap 9 mmol/L (8-16); Aspartate Amino Transferase 23 U/L (14-36); Bilirubin,Total 0.5 mg/dL (0.2-1.3); Blood Urea Nitrogen 11 mg/dL (7-17); Calcium 9.2 mg/dL (8.4-10.2); Carbon Dioxide 23 mmol/L (22-30); Chloride 106 mmol/L (98-107); Estimated CRCL calculation 78 ml/min; Estimated Glomerular Filt Rate > 60; Glucose 94 mg/dL (65-110); Potassium 4.5 mmol/L (3.4-5.0); Sodium 138 mmol/L (137-145)
[2023-12-12 08:30] VITALS: O2SAT 97
[2023-12-12 08:53] VITALS: PULSE 107
[2023-12-12] MEDS: GABAPENTIN 100 MG CAPSULE PO (08:53)
[2023-12-12] MEDS: METOPROLOL SUCCINATE EXT REL 50 MG TABCR PO (08:53)
[2023-12-12] MEDS: MAGNESIUM OXIDE 400 MG TABLET PO (08:53)
[2023-12-12] MEDS: INDOMETHACIN 25 MG CAPSULE 50 MG PO (08:54)
[2023-12-12] MEDS: LORATADINE 10 MG TABLET PO (08:54)
[2023-12-12] MEDS: FAMOTIDINE 20 MG TABLET 40 MG PO (08:54)
--- NOTE | 2023-12-12 09:03 | WPDANESPN ---
Anes - Prog Note Post-Op Date/Time: 12/12/23 09:03 Cardiovascular status: normal Respiratory status: normal Airway patency: baseline Mental status: baseline Post-Op hydration status: normal Vital Signs: Last Vital Signs Temp 36.4 C 12/11/23 20:35 Pulse 107 H 12/12/23 08:53 Resp 19 12/11/23 20:35 BP 119/73 12/11/23 20:35 Pulse Ox 97 12/12/23 08:30 O2 Del Method Room Air 12/12/23 08:30 O2 Flow Rate 2 12/11/23 12:05 Pain Score (VAS): 12/24 I/O: Intake & Output 12/11/23 12/12/23 12/12/23 23:59 07:59 15:59 Intake Total 800 480 Balance 800 480 Laboratory Tests 12/12/23 06:17 12/12/23 06:17 12/12/23 06:17 WBC 9.3 RBC 3.86 L Hgb 11.0 L Hct 35.8 L MCV 92.7 MCH 28.5 MCHC 30.7 L RDW 13.8 Plt Count 280 MPV 9.6 Sodium 138 Potassium 4.5 Chloride 106 Carbon Dioxide 23 Anion Gap 9 BUN 11 Creatinine 0.60 L Estim Creat Clear Calc 78 Estimated GFR > 60 Glucose 94 Calcium 9.2 Total Bilirubin 0.5 AST 23 ALT 10 Alkaline Phosphatase 76 Total Protein 6.0 L Albumin 3.7 Post-procedural complaints: none Patient Feedback: Patient satisfied with anesthetic care.
[2023-12-12] MEDS: DICYCLOMINE HCL 10 MG CAPSULE PO (09:09)
--- NOTE | 2023-12-12 11:45 | PM.PNGS ---
Progress Note: A&P Assessment and Plan (1) Acute appendicitis: Code(s): K35.80 - Unspecified acute appendicitis Status: Acute Assessment and Plan: doing well, cont routine postop care, ok to dc from surgical standpoint Subjective Subjective Date/Time Seen: 12/12/23 11:45 Interval history: doing well, some mild incisional soreness Review of Systems Review of Systems: All systems reviewed & are unremarkable except as noted in HPI and below Exam Const: General: cooperative, comfortable and no acute distress Resp: Auscultation: clear to auscultation bilaterally Cardio: Rate: regular rate Rhythm: regular rhythm GI: Inspection: normal to inspection, distended and incision GI Palp: Yes abdominal tenderness, Yes Soft to palpation and Yes Tenderness to palpation present (GI) Objective Data Vital Signs Vital Signs: Vital Signs - 24 hr 12/11/23 11:50 12/11/23 12:05 12/11/23 20:35 Temperature 36.4 C Pulse Rate 75 73 91 Respiratory Rate 12 12 19 Blood Pressure 119/71 133/73 119/73 Pulse Oximetry 100 100 99 Oxygen Delivery Nasal Cannula Nasal Cannula Oxygen Flow Rate 2 2 12/11/23 20:00 12/12/23 08:53 12/12/23 08:30 Temperature Pulse Rate 107 H Respiratory Rate Blood Pressure Pulse Oximetry 97 Oxygen Delivery Room Air Room Air Oxygen Flow Rate Intake/Output Intake/Output: Intake & Output 12/09/23 12/10/23 12/11/23 12/12/23 23:59 23:59 23:59 23:59 Intake Total 1200 1140 720 Balance 1200 1140 720 Meds/Results Medications: Active Medications Generic Name Dose Route Start Last Admin Trade Name Freq PRN Reason Stop Dose Admin Hydrocodone Bitart/Acetaminophen 1 tab 12/11/23 12:08 12/12/23 06:43 Hydrocodone/Acetaminophen (*Crx) 5-325 Mg Tablet PO 1 tab Q4H PRN Administration Pain Rated 4-6 Azelastine HCl 1 spray 12/11/23 17:00 12/12/23 09:09 Azelastine Hcl Nasal 0.1% 137 Mcg/Spr 30 Ml Btl NASAL Not Given BID ALFREDITO Dicyclomine HCl 10 mg 12/11/23 12:08 12/12/23 09:09 Dicyclomine Hcl 10 Mg Capsule PO 10 mg QID PRN Administration Abdominal Pain Famotidine 40 mg 12/11/23 17:00 12/12/23 08:54 Famotidine 20 Mg Tablet PO 40 mg BID [facility] Administration Gabapentin 100 mg 12/11/23 17:00 12/12/23 08:53 Gabapentin 100 Mg Capsule PO 100 mg BID [facility] Administration Indomethacin 50 mg 12/11/23 17:00 12/12/23 08:54 Indomethacin 25 Mg Capsule PO 50 mg BID [facility] Administration Loratadine 10 mg 12/12/23 09:00 12/12/23 08:54 Loratadine 10 Mg Tablet PO 10 mg QAM [facility] Administration Magnesium Oxide 400 mg 12/12/23 09:00 12/12/23 08:53 Magnesium Oxide 400 Mg Tablet PO 400 mg DAILY [facility] Administration Metoprolol Succinate 50 mg 12/12/23 09:00 12/12/23 08:53 Metoprolol Succinate Ext Rel 50 Mg Tabcr PO 50 mg DAILY [facility] Administration Morphine Sulfate 2 mg 12/10/23 21:39 12/11/23 13:23 Morphine Sulfate (*Crx) 2 Mg/Ml Inj IV PUSH 2 mg Q6H PRN Administration Abdominal Cramping Nortriptyline HCl 30 mg 12/11/23 21:00 12/11/23 20:56 Nortriptyline Hcl 10 Mg Capsule PO Not Given HS [facility] Ondansetron HCl 4 mg 12/10/23 21:39 Ondansetron Inj 4 Mg/2 Ml Vial IV PUSH Q6H PRN Nausea And Vomiting Promethazine HCl 25 mg 12/11/23 12:08 Promethazine Hcl 25 Mg Tablet PO Q6H PRN nausea Radiology Results: ITS Impressions Abdomen/Pelvis CT 12/10/23 20:21 IMPRESSION: Acute uncomplicated appendicitis. Mild esophagitis/gastritis. Labs Labs: Laboratory Results - last 24 hr 12/12/23 06:17 WBC 9.3 RBC 3.86 L Hgb 11.0 L Hct 35.8 L MCV 92.7 MCH 28.5 MCHC 30.7 L RDW 13.8 Plt Count 280 MPV 9.6 Sodium 138 Potassium 4.5 Chloride 106 Carbon Dioxide 23 Anion Gap 9 BUN 11 Creatinine 0.60 L Estim Creat Clear Calc 78 Estimated GFR > 60 Glucose 94 Calcium 9.2 Total Bilirubin 0.5
--- NOTE | 2023-12-12 11:56 | P.DS_ITS ---
DS: Admitting Diagnosis Discharge Date 12/12/23 Admitting Diagnosis Acute Appendicitis DS: Discharge Diagnosis Discharge Diagnosis (1) Acute appendicitis: Code(s): K35.80 - Unspecified acute appendicitis Status: Acute Assessment and Plan: * Presented to ER with severe upper abdominal pain associated with several episodes of emesis. * CT abdomen pelvis concerning for acute appendicitis. * Patient covered with Flagyl and Rocephin by ER * General surgery consulted * Laparoscopic Appendectomy preformed today by Dr Ellington * Denies pain, admits abdominal tenderness at trocar sites * Continue to follow order per general surgery * 12/12/23: POD #1 of Laparoscopic Appendectomy preformed today by Dr Ellington * Patient doing will today, denies pain, admits incisional tenderness, admits to passing gas * OK to DC from General surgery standpoint * DC Home with family, patient agreeable. (2) Hypertension: Code(s): I10 - Essential (primary) hypertension Status: Acute Assessment and Plan: * Patient has been normotensive during admission * Continue home BP medications Toprol XL * Continue to monitor * 12/12/23: Patient BP normotensive throughout admission * DC home on home medications (3) GERD (gastroesophageal reflux disease): Code(s): K21.9 - Gastro-esophageal reflux disease without esophagitis Status: Acute Assessment and Plan: * Patient denies symptoms, denies nausea at this time * Continue home medications of Pepcid and Mag-Ox * HOB elevated as needed. * Continue to monitor. * 12/12/23: Patient denies symptoms or concerns at this time * DC home on home medications. DS: Summary Hospital Course Reason for hospitalization: Acute Appendicitis- General Surgery Consult- Laparoscopic Appendectomy Hospital Course: 63 year old female seen today at bedside in interval assessment after admission for acute appendicitis. She presented to ER with abdominal pain nausea and diarrhea. CT showed acute appendicitis. She was addmitted for IV hydration, abx, pain control and General surgery consult. Patient POD#1 of laparoscopic appendectomy with Dr Ellington. Today patient is pleasant, alert and oriented x4. She denies pain at this time, admits to tenderness at incision sites, admits to passing gas. She has ambulated to the restroom without difficulty. She denies and nausea, chest pain, shortness of breath, and she tolerated diet well. General surgery OK with DC. Patient agreeable to DC home with family. All questions were answered to patient satisfaction. Status at Discharge Cognitive/behavioral status at discharge: At Baseline Functional status at discharge: uses cane/walker Overall status at discharge: patient is back to baseline Time Spent with Patient Time attestation: Total time spent providing and/or coordinating discharge services: Time spent: Greater than 30 minutes Exam Narrative: General: Well-appearing, Alert and oriented x 4, no acute distress HEENT: Normocephalic atraumatic EOMI, FROM, MMM Respiratory: Clear to auscultation bilaterally, respirations non-labored, BS equal Cardiovascular: Regular rate and rhythm normal no murmur or gallop no edema Gastrointestinal: Soft, non-distended, tender at incisional site, active bowel sounds Musculoskeletal/skin: Range of motion intact in all extremities, no rashes Neurologic: alert and oriented 4, CN II-XII intact, normal speech Psych: cooperative, appropriate mood, pleasant, appears to make good judgement DS: Data Data Completed and Pending Completed studies during hospitali
--- NOTE | 2023-12-12 11:56 | PM.DS ---
DS: Admitting Diagnosis Discharge Date 12/12/23 Admitting Diagnosis Acute Appendicitis DS: Discharge Diagnosis Discharge Diagnosis (1) Acute appendicitis: Code(s): K35.80 - Unspecified acute appendicitis Status: Acute Assessment and Plan: Presented to ER with severe upper abdominal pain associated with several episodes of emesis. CT abdomen pelvis concerning for acute appendicitis. Patient covered with Flagyl and Rocephin by ER General surgery consulted Laparoscopic Appendectomy preformed today by Dr Ellington Denies pain, admits abdominal tenderness at trocar sites Continue to follow order per general surgery 12/12/23: POD #1 of Laparoscopic Appendectomy preformed today by Dr Ellington Patient doing will today, denies pain, admits incisional tenderness, admits to passing gas OK to DC from General surgery standpoint DC Home with family, patient agreeable. (2) Hypertension: Code(s): I10 - Essential (primary) hypertension Status: Acute Assessment and Plan: Patient has been normotensive during admission Continue home BP medications Toprol XL Continue to monitor 12/12/23: Patient BP normotensive throughout admission DC home on home medications (3) GERD (gastroesophageal reflux disease): Code(s): K21.9 - Gastro-esophageal reflux disease without esophagitis Status: Acute Assessment and Plan: Patient denies symptoms, denies nausea at this time Continue home medications of Pepcid and Mag-Ox HOB elevated as needed. Continue to monitor. 12/12/23: Patient denies symptoms or concerns at this time DC home on home medications. DS: Summary Hospital Course Reason for hospitalization: Acute Appendicitis- General Surgery Consult- Laparoscopic Appendectomy Hospital Course: 63 year old female seen today at bedside in interval assessment after admission for acute appendicitis. She presented to ER with abdominal pain nausea and diarrhea. CT showed acute appendicitis. She was addmitted for IV hydration, abx, pain control and General surgery consult. Patient POD#1 of laparoscopic appendectomy with Dr Ellington. Today patient is pleasant, alert and oriented x4. She denies pain at this time, admits to tenderness at incision sites, admits to passing gas. She has ambulated to the restroom without difficulty. She denies and nausea, chest pain, shortness of breath, and she tolerated diet well. General surgery OK with DC. Patient agreeable to DC home with family. All questions were answered to patient satisfaction. Status at Discharge Cognitive/behavioral status at discharge: At Baseline Functional status at discharge: uses cane/walker Overall status at discharge: patient is back to baseline Time Spent with Patient Time attestation: Total time spent providing and/or coordinating discharge services: Time spent: Greater than 30 minutes Exam Narrative: General: Well-appearing, Alert and oriented x 4, no acute distress HEENT: Normocephalic atraumatic EOMI, FROM, MMM Respiratory: Clear to auscultation bilaterally, respirations non-labored, BS equal Cardiovascular: Regular rate and rhythm normal no murmur or gallop no edema Gastrointestinal: Soft, non-distended, tender at incisional site, active bowel sounds Musculoskeletal/skin: Range of motion intact in all extremities, no rashes Neurologic: alert and oriented 4, CN II-XII intact, normal speech Psych: cooperative, appropriate mood, pleasant, appears to make good judgement DS: Data Data Completed and Pending Completed studies during hospitalization: ITS Impressions Abdomen/Pelvis CT 12/10/23 20:21 IMPRESSION: Acute uncomplicated appendicitis. Mild esophagitis/gastritis. Pending studies at discharge: Pending at discharge 12/11/23 10:12 Surgical [PTH] Routine Labs on day of discharge: Labs from last 24 hours 12/12/23 06:17 WBC 9.3 RBC 3.86 L Hgb 11.0 L Hct 35.8 L MCV 92.7 MCH
--- NOTE | 2023-12-14 09:49 | PC.NURSE ---
Urine cx is negative.
== END 2023-12-12 13:40 | disposition home or self-care (01) ==
LOC: ANHED 18:59 → ANH3MEDSUR 22:28
PROVIDERS: Emergency Medicine; Nurse Practitioner Family; Surgery; Admitting Provider Student in an Organized Health Care Education/Training Program; Emergency Provider Emergency Medicine; PCP Family Medicine; Visit Provider Student in an Organized Health Care Education/Training Program
PROC: 0DTJ4ZZ Resection of Appendix, Percutaneous Endoscopic Approach (ICD-10-PCS; CPT 44970; principal; 2023-12-11 10:00)
DX: K35.80 Unspecified acute appendicitis (principal); I10 Essential (primary) hypertension; E03.9 Hypothyroidism, unspecified; G20.A1 Parkinson's disease without dyskinesia, without mention of fluctuations; K21.9 Gastro-esophageal reflux disease without esophagitis
CPT/HCPCS: 44970; 36415; 74177; 80048; 80053; 81001; 81025; 83690; 85025; 85027; 87086; 88304; 96361; 96365; 96368; 96374; 99285; A9270; G0378; J0330; J0696; J1100; J1836; J2250; J2270; J2405; J2704; J3010; J7030; J7120; Q9967

== ENCOUNTER 2024-02-22 07:48 | Emergency (ER) | payer OTHER, SELFPAY ==
[2024-02-22 07:53] VITALS: BP 144/86; PULSE 97; RESP 18; TEMP 36.1; O2SAT 98
--- NOTE | 2024-02-22 08:29 | ED.LOWEXIN ---
HPI - Extremity Injury (Lower) General Chief Complaint: Extremity Injury, Lower Stated Complaint: right knee pain (chronic) Time Seen by Provider: 02/22/24 07:55 History of Present Illness HPI Narrative: Patient is a 63-year-old female who presents ER with right knee pain. Ongoing issue. In the she is discharged with patellar chondromalacia. She recently had a CT scan at [facility] it shows patella Ira. No significant cortical changes. Patient reports this morning when she woke up her knee was swollen. She has pain with bearing weight but maintains full range of motion. No known trauma. No fevers or chills or sweats. Related Data Home Medications Medication Instructions Recorded Confirmed azelastine 137 mcg (0.1 %) nasal 137 mcg intranasal PRN 12/10/23 12/27/23 spray aerosol cetirizine 10 mg tablet 10 mg PO DAILY 12/10/23 12/27/23 famotidine 40 mg tablet 40 mg PO BID 12/10/23 12/27/23 gabapentin 100 mg capsule 100 mg PO BID 12/10/23 12/27/23 metoprolol succinate 50 mg 50 mg PO DAILY 12/10/23 12/27/23 tablet,extended release 24 hr dicyclomine 10 mg capsule 10 mg PO QID PRN Abdominal Pain 12/11/23 12/27/23 indomethacin 50 mg capsule 50 mg PO BID 12/11/23 12/27/23 magnesium 400 tablet PO DAILY 12/11/23 12/27/23 nortriptyline 10 mg capsule 30 mg PO HS 12/11/23 12/27/23 Allergies Allergy/AdvReac Type Severity Reaction Status Date / Time atorvastatin Allergy Itching Verified 12/27/23 13:22 Review of Systems Constitutional: Constitutional: Reports no additional constitutional complaints Musculoskeletal: Musculoskeletal: Reports as per HPI Integumentary/Breasts: Skin/Breast: Reports system reviewed and no additional complaints, except as docu Neurologic: Reports system reviewed and no additional complaints, except as documented PMF Past Medical History Medical History (Updated 02/22/24 @ 08:35 by Jann Sharpe MD) Asthma GERD (gastroesophageal reflux disease) History of fibromyalgia Hypertension Hypothyroidism Parkinson disease Sciatica Surgical History Surgical History (Updated 12/27/23 @ 13:23 by Ana Roman MA) History of cholecystectomy History of laparoscopic appendectomy 12/11/23 PDC Social History Social History Smoking status: Never smoker Alcohol intake: former Substance use: never Do You Feel Safe in your Home?: Yes Lack of Transportation: No Lack of Food: Never True Current Housing: I Have Housing Concerned About Future Housing: No Difficulty Paying Gas/Electric Bills: No Difficulty Paying for Meds: No Currently Unemployed: No Education: Bachelor's Degree Difficulty w/ Childcare or Family Care: No Spiritual care concerns: No Exam Narrative: GENERAL: Well-appearing, well-nourished, and in no acute distress. HEAD: Normocephalic, atraumatic. CHEST: Clear to auscultation. No respiratory distress. HEART: Regular rate and rhythm. Normal peripheral pulses. EXTREMITIES: Normal range of motion. No edema. Right knee without effusion. Mild medial joint line tenderness. No effusion SKIN: Warm, dry, no rash. NEURO: Alert and oriented x3. PSYCH: Normal mood and affect. Course Course Emergency Course: I have reviewed the patient's MyChart images. Discussed conservative management with knee sleeve and patellar stabilization. Follow-up PCP. Patient reports that her tizanidine aches or sleep. Discussed that she could cut it in half. We will also provided prescription for Skelaxin. Vital Signs Vital signs: Vital Signs Temperature 97.0 F L 02/22/24 07:53 Pulse Rate 97 02/22/24 07:53 Respiratory Rate 18 02/22/24 07:53 Blood Pressure 144/86 H 02/22/24 07:53 Pulse Oximetry 98 02/22/24 07:53 Temperature 97.0 F L 02/22/24 07:53 Pulse Rate 97 02/22/24 07:53 Respiratory Rate 18 02/22/24 07:53 Blood Pressure 144/86 H 02/22/24 07:53 Pulse Oximetry
== END 2024-02-22 09:00 | disposition home or self-care (01) ==
PROVIDERS: Emergency Provider Emergency Medicine; PCP Family Medicine
DX: M25.561 Pain in right knee (principal); G89.29 Other chronic pain; K21.9 Gastro-esophageal reflux disease without esophagitis; I10 Essential (primary) hypertension; E03.9 Hypothyroidism, unspecified; J45.909 Unspecified asthma, uncomplicated; G20.A1 Parkinson's disease without dyskinesia, without mention of fluctuations
CPT/HCPCS: 99283

== ENCOUNTER 2024-03-30 00:16 | Day surgery (SDC) | payer OTHER, SELFPAY ==
--- NOTE | 2024-03-25 20:31 | PM.IMHP ---
H&P: HPI History of Present Illness Date/Time: 03/25/24 20:31 Chief Complaint: urge incontinence and fecal incontinence Narrative: INterStim placed 2017. Need for MRI. Nearing time for battery change Review of Systems Review of Systems: All systems reviewed & are unremarkable except as noted in HPI and below PMFSH Past Medical History Medical History Asthma GERD (gastroesophageal reflux disease) History of fibromyalgia Hypertension Hypothyroidism Parkinson disease Sciatica Surgical History Surgical History History of cholecystectomy History of laparoscopic appendectomy 12/11/23 PDC Social History Social History Smoking status: Never smoker Alcohol intake: former Substance use: never Do You Feel Safe in your Home?: Yes Lack of Transportation: No Lack of Food: Never True Current Housing: I Have Housing Concerned About Future Housing: No Difficulty Paying Gas/Electric Bills: No Difficulty Paying for Meds: No Currently Unemployed: No Education: Bachelor's Degree Difficulty w/ Childcare or Family Care: No Spiritual care concerns: No Meds Home Medications and Allergies Home Medications Medication Instructions Recorded Confirmed Type azelastine 137 mcg (0.1 %) nasal 137 mcg intranasal PRN 12/10/23 12/27/23 History spray aerosol cetirizine 10 mg tablet 10 mg PO DAILY 12/10/23 12/27/23 History famotidine 40 mg tablet 40 mg PO BID 12/10/23 12/27/23 History gabapentin 100 mg capsule 100 mg PO BID 12/10/23 12/27/23 History metoprolol succinate 50 mg 50 mg PO DAILY 12/10/23 12/27/23 History tablet,extended release 24 hr dicyclomine 10 mg capsule 10 mg PO QID PRN Abdominal Pain 12/11/23 12/27/23 History docusate sodium 100 mg capsule 100 mg PO BID #20 caps 12/11/23 12/27/23 Rx (Colace) hydrocodone 5 mg-acetaminophen 325 1 tablet PO Q6H PRN pain #20 tabs 12/11/23 12/27/23 Rx mg tablet indomethacin 50 mg capsule 50 mg PO BID 12/11/23 12/27/23 History magnesium 400 tablet PO DAILY 12/11/23 12/27/23 History nortriptyline 10 mg capsule 30 mg PO HS 12/11/23 12/27/23 History metaxalone 800 mg tablet 800 mg PO TID #14 tabs 02/22/24 Rx Allergies Allergy/AdvReac Type Severity Reaction Status Date / Time atorvastatin Allergy Itching Verified 12/27/23 13:22 Exam Narrative: NAD nolrmal breathing A+Ox3 Assessment and Plan Assessment and plan (1) Urge incontinence: Code(s): N39.41 - Urge incontinence Status: Acute (2) 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
[2024-03-26 09:28] VITALS: BMI 22.8
--- NOTE | 2024-03-26 09:57 | PC.NURSE ---
Report to the Outpatient Waiting Room, entrance under the green pavilion located off [facility], at time ___9:00AM____ on date __03/30/24 . Planned Procedure Time: __11:00AM . Time changes happen often and if your time is changed the preop area will call you the afternoon before. - You and your visitor will be asked to self-screen and do not enter if you have any COVID symptoms. - A mask is optional within the hospital at this time. Patients may have clear liquids (water, carbonated beverages, clear teas, apple juice) until 3 hours prior to surgery with a maximum of 20 ounces. - No food from midnight until time of surgery. Take the following medications with a SIP of water the morning of surgery: __CARBIDOPA-LEVODOPA, GABAPENTIN, METOPROLOL, TRELEGY ELLIPTA. MAY USE ALBUTEROL INHALER NEEDED. DO NOT STOP ANY OF YOUR OTHER PRESCRIPTION MEDICATIONS PRIOR TO SURGERY ?EXCEPT THE FOLLOWING Medications to discontinue per physician __HOLD ALL VITAMINS/SUPPLEMENTS 3 DAYS PRE-OP PER ANESTHESIA Date to take last dose 03/26/24 Please no make-up, nail pashto, hairspray, perfume, deodorant, or body powder the day of surgery. No jewelry (including any body piercings) or valuables the day of surgery, leave them at home. Please take a shower or bath the night before, or the morning of, surgery with an antibacterial soap. Wear comfortable, loose fitting clothing. Children are encouraged to wear pajamas. - Jewelry must be removed prior to entering the operating room. Rings and piercings that are not removed may be cut off. - The hospital will not accept responsibility for valuables. - Please leave all valuables, including medications, at home the day of surgery. If you are going home after surgery, a licensed non emergency services ambulance driver must drive you home. - NO public transportation without another adult if you receive anesthesia. - We recommend that an adult stay with you for 24 hours following discharge. - We also recommend that you do not drive, make important decision, drink alcoholic beverages, or take any drugs that were not prescribed by your health care provider for at least 24 hours after your discharge time. For Pediatric surgeries, we recommend two adults accompany the child home. Follow any additional instructions given to you from your surgeon. If you or anyone in your household have experienced Covid symptoms in the past week, please notify your surgeon or the nurse liaison at the phone number below for possible testing. Telephone instructions given to ____PATIENT and asked if any additional questions and then verbalized understanding. Patient advised to call surgeon office or pre surgery nurse liaison [phone] if any additional questions.
--- NOTE | ~2024-03-30 | XR_ITS ---
EXAMINATION: XR fluoroscopy no charge DATE: 03/30/2024 11:31 INDICATION: Replaced neural stimulator implant. TECHNIQUE: 2 intraoperative fluoroscopic views of the pelvis were obtained. I was not present. Fluoro scopy exposure time was 33 seconds. COMPARISON: CT abdomen pelvis 12/10/2023 FINDINGS: There is an electrode in the S3 neural foramen. There is no side marker. IMPRESSION: 1. Electrode in the S3 neural foramen. Reviewed, dictated and finalized at location E.
--- NOTE | 2024-03-30 04:43 | WPDHPUPDATE1 ---
History and Physical Update Update Date/Time: 03/30/24 04:43 History and Physical has been reviewed, including an updated exam of the patient. There are NO changes in the patient's condition. Risks, benefits, and alternatives have been discussed and questions answered. Patient agrees to proceed with procedure.
[2024-03-30 09:31] VITALS: BP 119/67; PULSE 79; RESP 16; TEMP 36.9; O2SAT 100
[2024-03-30] MEDS: LACTATED RINGERS 1,000 ML 30 ML IV CONT (09:50)
--- NOTE | 2024-03-30 10:37 | WPDANESEPPF ---
Anes - Initial Pre Proc Eval Procedure: Operation Date: 03/30/24 11:00 Proposed Procedures p Replacement Neurostimulator Implant - Be Connell MD Date/Time: 03/30/24 10:37 Surgeon: Be Connell MD Pre Op Diagnosis: sensory urge incont Patient Data Age: 63 Gender: F Height: 1.69 m Weight: 67.2 kg Last Vital Signs Temp 98.4 F 03/30/24 09:31 Pulse 79 03/30/24 09:31 Resp 16 03/30/24 09:31 BP 119/67 03/30/24 09:31 Pulse Ox 100 03/30/24 09:31 O2 Del Method Room Air 03/30/24 09:31 Allergies Allergy/AdvReac Type Severity Reaction Status Date / Time atorvastatin Allergy Itching Verified 03/26/24 09:19 Home Medications Medication Instructions Recorded Confirmed Type azelastine 137 mcg (0.1 %) nasal 137 mcg intranasal BID 12/10/23 03/30/24 History spray aerosol cetirizine 10 mg tablet 10 mg PO HS 12/10/23 03/30/24 History famotidine 40 mg tablet 40 mg PO BID 12/10/23 03/30/24 History gabapentin 100 mg capsule 100 mg PO BID 12/10/23 03/30/24 History metoprolol succinate 50 mg 50 mg PO QAM 12/10/23 03/30/24 History tablet,extended release 24 hr dicyclomine 10 mg capsule 10 mg PO QID PRN Abdominal Pain 12/11/23 03/30/24 History indomethacin 50 mg capsule 50 mg PO BID 12/11/23 03/30/24 History magnesium 400 tablet PO DAILY 12/11/23 03/30/24 History nortriptyline 10 mg capsule 30 mg PO HS 12/11/23 03/30/24 History albuterol sulfate 90 mcg/actuation 2 puff inhalation Q4-6H PRN 03/26/24 03/30/24 History aerosol inhaler Shortness Of Breath Or Wheezing carbidopa 25 mg-levodopa 100 mg 1.5 tablet PO QID 03/26/24 03/30/24 History tablet cholecalciferol (vitamin D3) 50 50 mcg PO DAILY 03/26/24 03/30/24 History mcg (2,000 unit) capsule docusate sodium 100 mg capsule 100 mg PO BID PRN Constipation 03/26/24 03/26/24 History (Colace) fluticasone fur. 200 mcg-umeclid 1 inh inhalation QAM 03/26/24 03/30/24 History 62.5 mcg-vilant 25 mcg inhalat.powder (Trelegy Ellipta) fluticasone propionate 50 2 spray intranasal BID 03/26/24 03/30/24 History mcg/actuation nasal spray,suspension Patient hx anesthesia problems: none Family hx anesthesia problems: none Results Review: All pre-operative results and documents have been reviewed as part of the pre-operative evaluation. [facility], LAT[facility] Past Medical History Medical History Asthma GERD (gastroesophageal reflux disease) History of fibromyalgia Hypertension Hypothyroidism Parkinson disease Sciatica Surgical History Surgical History History of cholecystectomy History of laparoscopic appendectomy 12/11/23 PDC Social History Social History Smoking status: Never smoker Alcohol intake: former Substance use: never Do You Feel Safe in your Home?: Yes Lack of Transportation: No Lack of Food: Never True Current Housing: I Have Housing Concerned About Future Housing: No Difficulty Paying Gas/Electric Bills: No Difficulty Paying for Meds: No Currently Unemployed: No Education: Bachelor's Degree Difficulty w/ Childcare or Family Care: No Living arrangements: with family Additional living arrangements comments: [facility] Spiritual care concerns: No Anes - Eval Final PreProcedure Day of Procedure 03/30/24 10:37 Patient weight: normal Heart: regular rate and rhythm Lungs: clear to auscultation Airway: Mallampati scale class II Neurological: alert and oriented Last oral intake: >/= 8 hours ASA classification: III Emergent: no Anesthetic plan: proceed Anesthesia type and monitoring: general GIVS and standard monitoring Results Review: All pre-operative results and documents have been reviewed as part of the pre-operative evaluation. Mild RAD, parkinsons disease, on 4 x daily meds (has taken 1 this am), nex
[2024-03-30] MEDS: ceFAZolin 2 GM/D5W 50 ML 2 GM/50 ML BAG IVPB (10:50)
[2024-03-30] MEDS: LIDO 1%/EPINEPHRINE 1:100,000 20 ML VIAL 10 ML INFILTRATE (11:15)
[2024-03-30] MEDS: BUPIVACAINE/EPINEPHRINE 0.5% 10 ML VIAL 20 ML INFILTRATE (11:16)
[2024-03-30 11:35] VITALS: BP 118/66; PULSE 88; RESP 16; O2SAT 100
--- NOTE | 2024-03-30 11:37 | W.PM.PROC2 ---
Procedure Note - Detailed Date of Procedure 03/30/24 Pre-op Diagnosis sensory urge incontinence Fecal incontinence Post-op Diagnosis Same Procedure Performed Removal of sacral lead. Placement of new right-sided sacral lead. Replacement of implantable pulse generator. Complex neuro programming and impedance check [id number], [id number], [id number] Surgeon Be Connell MD Anesthesia MAC and Local Indications She has an InterStim device in place for her urinary and fecal incontinence. He was placed in 1017. She is nearing time for a new battery. She also needs an MRI. She is here today for a full revision. She understands risks of bleeding, infection, lack of efficacy, need free vision and battery changes. She agrees to proceed Description of Procedure She was correctly identified. Informed consent obtained. From the operating room. She was given monitored anesthesia care. She was placed in prone position. Lower back and buttock were prepped draped sterile fashion. Time-out performed. I anesthetized the skin over the previously placed pulse generator. I incised the skin. I explanted the pulse generator. I used fluoroscopy to identify my sacral lead. I anesthetized the skin. I incised the skin. I located the lead. I explanted in its entirety. I located my sacral landmarks in the AP and lateral orientation. I anesthetized skin. I used the foramen needles into the S3 foramen on the patient's right. I monitored the needle fluoroscopy. I got appropriate responses of the threshold. I made a skin mike. I placed a stylet. I then placed the lead into sheath. I then placed deployed the lead percutaneously. I used fluoroscopy to monitor the lead as well as the needle. I then again stimulated the lead and got appropriate Krystal and toe response at a low threshold. I did a skipping incision to take extra lead. I then tunneled the lead towards the previous pulse generator. The new battery was opened. It was programmed. Appropriate connections were made. The battery was placed in the pocket. Impedances were checked and found to be normal I irrigated all wounds. I closed subcutaneous tissues with 2-0 Vicryl. Skin with 4-0 Vicryl. Glue was applied. She was awakened transferred to PACU in stable condition.
[2024-03-30 12:00] VITALS: BP 114/71; PULSE 72; RESP 16
[2024-03-30 12:26] VITALS: BP 114/77; PULSE 74; RESP 16
== END 2024-03-30 12:32 | disposition home or self-care (01) ==
PROVIDERS: PCP Family Medicine; Visit Provider Urology
PROC: (CPT 64585; principal; 2024-03-30 11:00)
DX: N39.41 Urge incontinence (principal); R15.9 Full incontinence of feces; J45.909 Unspecified asthma, uncomplicated; K21.9 Gastro-esophageal reflux disease without esophagitis; I10 Essential (primary) hypertension; E03.9 Hypothyroidism, unspecified; M79.7 Fibromyalgia; G20.A1 Parkinson's disease without dyskinesia, without mention of fluctuations; Z79.51 Long term (current) use of inhaled steroids
CPT/HCPCS: 64585; 64590; 99199; C1767; C1778; C1787; J0690; J2250; J2704; J3010; J7120

== ENCOUNTER 2024-07-29 22:20 | Emergency (ER) | payer OTHER, SELFPAY ==
[2024-07-29 22:25] VITALS: BP 127/83; PULSE 83; RESP 20; TEMP 36.3; O2SAT 100
--- NOTE | 2024-07-29 22:25 | ECG_ITS ---
Test Date: 2024-07-29 22:31:41 Measurements Intervals [place] Rate: 77 P: 59 ID: 139 QRS: 16 QRSD: 77 T: 37 QT: 354 QTc: 401 Interpretive Statements SINUS RHYTHM POSSIBLE LEFT ATRIAL ENLARGEMENT DELAYED PRECORDIAL R/S TRANSITION BORDERLINE T WAVE ABNORMALITY- ANTERIOR LEADS BASELINE ARTIFACT- I, II, III, AVR, AVL, AVF, 1-V6 BORDERLINE ECG No previous ECG available for comparison Electronically Signed On 07-30-2024 06:23:23 CDT by Lemuel Leach D.O.
[2024-07-29 22:45] LABS: Basophils Percent Auto 0.2 % (0.2-1.2); Eosinophils Absolute Auto 0.1 K/mm3 (0-0.3); Eosinophils Percent Auto 0.6 % (0-4.4); Hematocrit 38.5 % (37.0-47.0); Hemoglobin 12.6 g/dL (12.0-15.0); Immature Granulocyte Absolute 0.07 K/mm3 (0.00-0.031); Immature Granulocyte Percent A 0.7 % (0-0.5); Lymphocytes Absolute Auto 3.82 K/mm3 (0.9-3.2); Lymphocytes Percent Auto 39.3 % (18.3-44.2); Mean Corpuscular HGB Conc 32.7 g/dl (32-36); Mean Corpuscular Volume 88.7 fl (80-100); Mean Platelet Volume 9.5 fl (7.4-10.4); Monocytes Absolute Auto 0.6 K/mm3 (0.1-0.6); Monocytes Percent Auto 6.2 % (2.6-8.5); Neutrophils Absolute Auto 5.2 K/mm3 (1.3-6.7); Platelet Count Result 324 k/mm3 (150-375); Red Blood Count 4.34 M/mm3 (4.2-5.4); Red Cell Distribution Width 13.4 % (11.5-14.5); White Blood Count 9.7 K/mm3 (4.5-10.0)
[2024-07-29 22:58] LABS: Alanine Aminotransferase 12 U/L (6-35); Albumin Level 4.6 g/dL (3.5-5.1); Alkaline Phosphatase 80 U/L (38-126); Anion Gap 10 mmol/L (4-12); Aspartate Amino Transferase 33 U/L (14-36); Bilirubin,Total 0.3 mg/dL (0.2-1.3); Blood Urea Nitrogen 18 mg/dL (7-17); Calcium 9.3 mg/dL (8.4-10.2); Carbon Dioxide 26 mmol/L (22-30); Chloride 103 mmol/L (98-107); Estimated CRCL calculation 68 ml/min; Estimated Glomerular Filt Rate > 60; Glucose 118 mg/dL (65-110); Potassium 4.6 mmol/L (3.4-5.0); Sodium 139 mmol/L (137-145)
[2024-07-29 23:14] LABS: Add Urine Microscopic? YES; Appearance Urine Clear (Clear); Bacteria Urine None Seen /hpf; Bilirubin Urine Negative (Negative); Blood Urine Negative (Negative); Color Urine Yellow (Yellow); Glucose Urine UA Negative (Negative); Ketones Urine Negative (Negative); Leukocyte Esterase Ur 1+ LEU/UL (Negative); Mucus Urine Present /lpf; Need Manual Microscopic Reviewed; Nitrate Urine Negative (Negative); Non Pathogenic Casts 0-2; Protein Urine Negative (Negative); RBC Urine 0-2 /hpf (0-2); Specific Grav Ur 1.013 (1.001-1.035); Squamous Epithelial Cell Urine None Seen /hpf (Few); Urobilinogen Urine 0.2 mg/dL (<2.0); WBC Urine 0-5 /hpf (0-3)
[2024-07-30] MEDS: SODIUM CHLORIDE 0.9% IV 1,000 ML 999 ML IV CONT (00:39)
[2024-07-30 00:40] VITALS: BP 128/66; PULSE 72; RESP 16; TEMP 36.4; O2SAT 99
--- NOTE | 2024-07-30 00:43 | PC.NURSE ---
Per EDP Dr. Garcia hold off on orthrostatic blood pressures until the fluids have been completed.
--- NOTE | 2024-07-30 00:55 | ECG_ITS ---
Test Date: 2024-07-30 01:17:11 Measurements Intervals [place] Rate: 62 P: 51 MS: 144 QRS: 26 QRSD: 85 T: 48 QT: 407 QTc: 416 Interpretive Statements SINUS RHYTHM POSSIBLE LEFT ATRIAL ENLARGEMENT BASELINE ARTIFACT- I, II, III, AVR, AVL, AVF, V1-V6 BORDERLINE ECG Compared to ECG 07/29/2024 22:31:41 No significant changes Electronically Signed On 07-30-2024 06:25:33 CDT by Lemuel Leach D.O.
[2024-07-30 00:57] LABS: Magnesium 2.6 mg/dL (1.6-2.3)
[2024-07-30 01:08] LABS: Lactic Acid Reflex 1.3 mmol/L (0.7-2.0)
[2024-07-30 01:09] LABS: Troponin I < 0.012 ng/mL (0.000-0.034)
[2024-07-30 01:21] LABS: Troponin I < 0.012 ng/mL (0.000-0.034)
[2024-07-30 01:33] VITALS: BP 122/66; PULSE 64; RESP 16; TEMP 36.6; O2SAT 94
[2024-07-30 01:42] VITALS: BP 110/75; PULSE 68
[2024-07-30 02:20] VITALS: BP 117/64; BP 133/85; PULSE 69; PULSE 80
--- NOTE | 2024-07-30 02:37 | ED.GENADULT ---
HPI - General Adult General Chief complaint: Dizziness Stated complaint: GI upset x2 days, dizzy, weakness Time Seen by Provider: 07/30/24 00:21 History of Present Illness HPI narrative: Patient is 63-year-old female who presents emergency department with chief complaint of nausea vomiting and diarrhea that started on Tuesday. The patient states that the nausea has done better but now she gets lightheaded whenever she stands up the patient tried doing a lot of p.o. fluid but reports that she still feels very the patient states she felt lightheaded the patient reports he has prior history of Parkinson's Related Data Home Medications Medication Instructions Recorded Confirmed azelastine 137 mcg (0.1 %) nasal 137 mcg intranasal BID 12/10/23 03/30/24 spray cetirizine 10 mg tablet 10 mg PO HS 12/10/23 03/30/24 famotidine 40 mg tablet 40 mg PO BID 12/10/23 03/30/24 gabapentin 100 mg capsule 100 mg PO BID 12/10/23 03/30/24 metoprolol succinate 50 mg 50 mg PO QAM 12/10/23 03/30/24 tablet,extended release 24 hr dicyclomine 10 mg capsule 10 mg PO QID PRN Abdominal Pain 12/11/23 03/30/24 indomethacin 50 mg capsule 50 mg PO BID 12/11/23 03/30/24 magnesium 400 tablet PO DAILY 12/11/23 03/30/24 nortriptyline 10 mg capsule 30 mg PO HS 12/11/23 03/30/24 albuterol sulfate 90 mcg/actuation 2 puff inhalation Q4-6H PRN 03/26/24 03/30/24 aerosol inhaler Shortness Of Breath Or Wheezing carbidopa 25 mg-levodopa 100 mg 1.5 tablet PO QID 03/26/24 03/30/24 tablet cholecalciferol (vitamin D3) 50 50 mcg PO DAILY 03/26/24 03/30/24 mcg (2,000 unit) capsule docusate sodium 100 mg capsule 100 mg PO BID PRN Constipation 03/26/24 03/26/24 (Colace) fluticasone fur. 200 mcg-umeclid 1 inh inhalation QAM 03/26/24 03/30/24 62.5 mcg-vilant 25 mcg inhalat.powder (Trelegy Ellipta) fluticasone propionate 50 2 spray intranasal BID 03/26/24 03/30/24 mcg/actuation nasal spray,suspension Allergies Allergy/AdvReac Type Severity Reaction Status Date / Time atorvastatin Allergy Itching Verified 07/29/24 22:30 Review of Systems Review of Systems: A 10 system review of systems was completed on the patient and is negative except for what is stated in the HPI. Nursing and ancillary documentation was reviewed. PMFSH Past Medical History Medical History Asthma GERD (gastroesophageal reflux disease) History of fibromyalgia Hypertension Hypothyroidism Parkinson disease Sciatica Surgical History Surgical History History of cholecystectomy History of laparoscopic appendectomy 12/11/23 PDC Social History Social History Smoking status: Never smoker Alcohol intake: former Substance use: never Do You Feel Safe in your Home?: Yes Lack of Transportation: No Lack of Food: Never True Current Housing: I Have Housing Concerned About Future Housing: No Difficulty Paying Gas/Electric Bills: No Difficulty Paying for Meds: No Currently Unemployed: No Education: Bachelor's Degree Difficulty w/ Childcare or Family Care: No Living arrangements: with family [facility] Spiritual care concerns: No Exam Narrative: GENERAL: Well-appearing, well-nourished, and in no acute distress. HEAD: Normocephalic, atraumatic. EYES: PERRLA and EOMI. ENT: Nares clear, no rhinorrhea or epistaxis. Mucous membranes moist. NECK: Supple. CHEST: Clear to auscultation. No respiratory distress. HEART: Regular rate and rhythm. No murmur heard. Normal peripheral pulses. ABDOMEN: Soft, nontender, nondistended, normal active bowel sounds. EXTREMITIES: Normal range of motion. No edema. SKIN: Warm, dry, no rash. NEURO: No focal deficits. Alert and oriented x3. PSYCH: Normal mood and affect. Course Vital Signs
== END 2024-07-30 02:54 | disposition home or self-care (01) ==
PROVIDERS: Emergency Provider Emergency Medicine; PCP Family Medicine
DX: K52.9 Noninfective gastroenteritis and colitis, unspecified (principal); E86.0 Dehydration; J45.909 Unspecified asthma, uncomplicated; K21.9 Gastro-esophageal reflux disease without esophagitis; I10 Essential (primary) hypertension; E03.9 Hypothyroidism, unspecified; G20.A1 Parkinson's disease without dyskinesia, without mention of fluctuations; R82.998 Other abnormal findings in urine
CPT/HCPCS: 36415; 80053; 81001; 83605; 83735; 84484; 85025; 87086; 87088; 93005; 96360; 99284; J7030

== ENCOUNTER 2024-08-17 08:09 | Observation (INO) | payer OTHER, SELFPAY ==
[2024-08-17] VITALS (15 sets, daily range): BP systolic 126–148; BP diastolic 82–101; PULSE 68–87; RESP 13–20; TEMP 36.6–37.1; O2SAT 96–100; BMI 21.7
--- NOTE | ~2024-08-17 | XR_ITS ---
EXAMINATION: XR chest 2V DATE: 08/17/2024 09:00 INDICATION: Left chest heaviness TECHNIQUE: PA and lateral views of the chest were obtained. COMPARISON: None FINDINGS: The lungs are clear with no focal airspace opacities, pulmonary edema, pleural effusion or pneumothor ax. The cardiomediastinal silhouette is normal. Cholecystectomy clips in right upper quadrant. IMPRESSION: 1. No acute cardiopulmonary disease. Reviewed, dictated and finalized at location A.
--- NOTE | 2024-08-17 08:15 | ECG_ITS ---
Test Date: 2024-08-17 08:19:48 Measurements Intervals [place] Rate: 78 P: 61 VT: 162 QRS: -3 QRSD: 72 T: 42 QT: 375 QTc: 429 Interpretive Statements SINUS RHYTHM POSSIBLE LEFT ATRIAL ENLARGEMENT [-0.1mV P WAVE IN V1/V2] Compared to ECG 07/30/2024 01:17:11 No significant changes Electronically Signed On 08-17-2024 10:41:59 CDT by Juan C Sen M.D.
--- NOTE | 2024-08-17 08:34 | ED.CHESTPAIN ---
HPI - Chest Pain General Chief Complaint: Chest Pain Stated Complaint: high blood pressure Time Seen by Provider: 08/17/24 08:13 Source: patient Mode of arrival: ambulatory Limitations: no limitations History of Present Illness HPI narrative: This is a 63-year-old female, with history of hypertension and Parkinson's disease, who presents emergency department complaining of left-sided chest heaviness for the last 2-1/2 hours. The patient states she was woken from sleep with sensation of chest heaviness at approximately 06:00 today. She states she took her blood pressure several times with results between the 120s to 130 systolic. She denies any known aggravating or alleviating factors and denies shortness of breath, nausea or diaphoresis with the pain. She states it is gradually improving and is now rated 2/10. She also complains of a mild global headache with no weakness or numbness. She has no other complaints at this time. Related Data Home Medications Medication Instructions Recorded Confirmed azelastine 137 mcg (0.1 %) nasal 137 mcg intranasal BID 12/10/23 08/17/24 spray cetirizine 10 mg tablet 10 mg PO BID 12/10/23 08/17/24 famotidine 40 mg tablet 40 mg PO BID 12/10/23 08/17/24 gabapentin 100 mg capsule 100 mg PO BID 12/10/23 08/17/24 metoprolol succinate 50 mg 25 mg PO QAM 12/10/23 08/17/24 tablet,extended release 24 hr dicyclomine 10 mg capsule 10 mg PO QID PRN Abdominal Pain 12/11/23 08/17/24 indomethacin 50 mg capsule 50 mg PO BID 12/11/23 08/17/24 magnesium 400 tablet PO DAILY 12/11/23 08/17/24 nortriptyline 10 mg capsule 30 mg PO HS 12/11/23 08/17/24 albuterol sulfate 90 mcg/actuation 2 puff inhalation Q4-6H PRN 03/26/24 08/17/24 aerosol inhaler Shortness Of Breath Or Wheezing carbidopa 25 mg-levodopa 100 mg 1.5 tablet PO QID 03/26/24 08/17/24 tablet cholecalciferol (vitamin D3) 50 50 mcg PO DAILY 03/26/24 08/17/24 mcg (2,000 unit) capsule docusate sodium 100 mg capsule 100 mg PO BID PRN Constipation 03/26/24 08/17/24 (Colace) fluticasone fur. 200 mcg-umeclid 1 inh inhalation QAM 03/26/24 08/17/24 62.5 mcg-vilant 25 mcg inhalat.powder (Trelegy Ellipta) fluticasone propionate 50 2 spray intranasal BID 03/26/24 08/17/24 mcg/actuation nasal spray,suspension meloxicam 15 mg tablet 15 mg PO DAILY 08/17/24 08/17/24 tizanidine 4 mg tablet 4 mg PO Q8-10H PRN muscle cramps 08/17/24 08/17/24 Allergies Allergy/AdvReac Type Severity Reaction Status Date / Time atorvastatin Allergy Itching Verified 07/29/24 22:30 Review of Systems Review of Systems: All systems reviewed & are unremarkable except as noted in HPI and below PMFSH Past Medical History Medical History Asthma GERD (gastroesophageal reflux disease) History of fibromyalgia Hypertension Hypothyroidism Parkinson disease Sciatica Surgical History Surgical History History of cholecystectomy History of laparoscopic appendectomy 12/11/23 PDC Family History Family History Mother Cardiac abnormality Social History Social History Smoking status: Never smoker Alcohol intake: former Substance use: never Do You Feel Safe in your Home?: Yes Lack of Transportation: No Lack of Food: Never True Current Housing: I Have Housing Concerned About Future Housing: No Difficulty Paying Gas/Electric Bills: No Difficulty Paying for Meds: No Currently Unemployed: No Education: Bachelor's Degree Difficulty w/ Childcare or Family Care: No Living arrangements: with family Additional living arrangements comments: HUSB Spiritual care concerns: No Exam Narrative: GENERAL: Well-developed, well-nourished, and in no acute distress. HEAD: Normocephalic, atraumatic. EYES: PERRLA and EOMI. CHEST: Cl
[2024-08-17 08:42] LABS: Basophils Percent Auto 0.6 % (0.2-1.2); Eosinophils Absolute Auto 0.1 K/mm3 (0-0.3); Eosinophils Percent Auto 2.1 % (0-4.4); Hematocrit 37.7 % (37.0-47.0); Hemoglobin 11.7 g/dL (12.0-15.0); Immature Granulocyte Absolute 0.01 K/mm3 (0.00-0.031); Immature Granulocyte Percent A 0.2 % (0-0.5); Lymphocytes Absolute Auto 1.99 K/mm3 (0.9-3.2); Lymphocytes Percent Auto 41.7 % (18.3-44.2); Mean Corpuscular Hemoglobin 28.2 pg (26-34); Mean Corpuscular Volume 90.8 fl (80-100); Mean Platelet Volume 9.4 fl (7.4-10.4); Monocytes Absolute Auto 0.3 K/mm3 (0.1-0.6); Monocytes Percent Auto 6.9 % (2.6-8.5); Neutrophils Absolute Auto 2.3 K/mm3 (1.3-6.7); Neutrophils Percent Auto 48.5 % (45.5-73.1); Platelet Count Result 333 k/mm3 (150-375); Red Blood Count 4.15 M/mm3 (4.2-5.4); Red Cell Distribution Width 13.8 % (11.5-14.5); White Blood Count 4.8 K/mm3 (4.5-10.0)
[2024-08-17 08:51] LABS: Alanine Aminotransferase 23 U/L (6-35); Albumin Level 4.5 g/dL (3.5-5.1); Alkaline Phosphatase 75 U/L (38-126); Anion Gap 6 mmol/L (4-12); Aspartate Amino Transferase 25 U/L (14-36); Bilirubin,Total 0.6 mg/dL (0.2-1.3); Blood Urea Nitrogen 14 mg/dL (7-17); Calcium 9.4 mg/dL (8.4-10.2); Carbon Dioxide 28 mmol/L (22-30); Chloride 106 mmol/L (98-107); Estimated CRCL calculation 81 ml/min; Estimated Glomerular Filt Rate > 60; Glucose 100 mg/dL (65-110); Lipase 35 U/L (23-300); Potassium 4.3 mmol/L (3.4-5.0); Sodium 140 mmol/L (137-145)
[2024-08-17 09:01] LABS: Troponin I < 0.012 ng/mL (0.000-0.034)
[2024-08-17 09:08] LABS: Prothrombin Time 13.3 Seconds (11.1-14.7)
[2024-08-17 09:09] LABS: Partial Thromboplastin Time 31.1 Seconds (22.3-36.8)
--- NOTE | 2024-08-17 10:31 | PM.CNCAR ---
Assessment and Plan Assessment and plan (1) Chest pain: Code(s): R07.9 - Chest pain, unspecified Status: Acute Assessment and Plan: Atypical chest pain with EKG showing sinus rhythm no ST-T wave abnormalities to suggest ischemia. Her 1st troponin level is negative. She is no not to have any obstructive coronary artery disease by angiogram and subsequent negative stress testing. 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 History of Present Illness History of Present Illness Consult date/time: 08/17/24 10:31 Requesting physician: Julio Mena MD Consult reason: chest pain Reason For Visit: chest pain Narrative: Flory Coker is a 63 year old female who presented to the Emergency Department because of chest pain. This is a patient who follows with Dr. Cagle at [facility] with a long history of atypical chest pain trated and improved with ECP. She underwent coronary angiogram in 2012 and was not found to have any coronary artery disease. She has subsequently had stress testing, most recently in 2021 which was negative for ischemia. She describes waking up early this morning with a sensation of pressure underneath her left breast. She became concerned when the pain intensified which prompted her to come to the ED. She denies any shortness of breath, palpitations, syncope, presyncope, diaphoresis. The pain has been constant and waxing and waning in intensity. She states the pain is worse when she stands up. No other aggravating or alleviating factors. She is resting comfortably in a stretcher at the time of my evaluation and does still complain of pressure under her left breast. Review of Systems Review of Systems: All systems reviewed & are unremarkable except as noted in HPI and below PMFSH Past Medical History Medical History Asthma GERD (gastroesophageal reflux disease) History of fibromyalgia Hypertension Hypothyroidism Parkinson disease Sciatica Surgical History Surgical History History of cholecystectomy History of laparoscopic appendectomy 12/11/23 PDC Family History Family History Mother Cardiac abnormality Social History Social History Smoking status: Never smoker Alcohol intake: former Substance use: never Do You Feel Safe in your Home?: Yes Lack of Transportation: No Lack of Food: Never True Current Housing: I Have Housing Concerned About Future Housing: No Difficulty Paying Gas/Electric Bills: No Difficulty Paying for Meds: No Currently Unemployed: No Education: Bachelor's Degree Difficulty w/ Childcare or Family Care: No Living arrangements: with family Additional living arrangements comments: HUSB Spiritual care concerns: No Meds Home Medications and Allergies Home Medications Medication Instructions Recorded Confirmed Type azelastine 137 mcg (0.1 %) nasal 137 mcg intranasal BID 12/10/23 08/17/24 History spray cetirizine 10 mg tablet 10 mg PO BID 12/10/23 08/17/24 History famotidine 40 mg tablet 40 mg PO BID 12/10/23 08/17/24 History gabapentin 100 mg capsule 100 mg PO BID 12/10/23 08/17/24 History metoprolol succinate 50 mg 25 mg PO QAM 12/10/23 08/17/24 History tablet,extended release 24 hr dicyclomine 10 mg capsule 10 mg PO QID PRN Abdominal Pain 12/11/23 08/17/24 History indomethacin 50 mg capsule 50 mg PO BID 12/11/23 08/17/24 History magnesium 400 tablet PO DAILY 12/11/23 08/17/24 History nortriptyline 10 mg capsule 30 mg PO HS 12/11/23 08/17/24 History albuterol sulfate 90 mcg/actuation 2 puff inhalation Q4-6H PRN 03/26/24 08/17/24 History aerosol inhaler Shortness Of Breath
--- NOTE | 2024-08-17 11:03 | ADMGEN ---
This patient, Flory Coker, was admitted to IMU Room 211-01. Patient/family oriented to hospital policies and general routines including ID bracelet, bed and alarms, visiting hours, pain management, procedures, bathroom and other care routines, personal items, smoking policy, room service/diet, and visiting hours. Information on how to activate the Rapid Response Team has been discussed. Patient/Family are encouraged to report perceived risks to care and to ask questions if they do not understand what they are told or what they should do. Report received from Anabelle Brunner at [phone].
[2024-08-17 12:07] LABS: Troponin I < 0.012 ng/mL (0.000-0.034)
[2024-08-17 14:59] LABS: Troponin I < 0.012 ng/mL (0.000-0.034)
--- NOTE | 2024-08-17 14:59 | PM.IMHP ---
H&P: HPI History of Present Illness Date/Time: 08/17/24 14:59 Chief Complaint: Chest pain Narrative: This is a 63-year-old female, with history of hypertension and Parkinson's disease, who presents emergency department complaining of left-sided chest heaviness for the last 2-1/2 hours. The patient states she was woken from sleep with sensation of chest heaviness at approximately 06:00 today. She states she took her blood pressure several times with results between the 120s to 130 systolic. She denies any known aggravating or alleviating factors and denies shortness of breath, nausea or diaphoresis with the pain. She states it is gradually improving and is now rated 2/10. She also complains of a mild global headache with no weakness or numbness. She has no other complaints at this time. Review of Systems Review of Systems: - CONSTITUTIONAL: Denies weight loss, fever and chills. - HEENT: Denies changes in vision and hearing - RESPIRATORY: Denies SOB and cough. - CV: Denies palpitations and reports CP. - GI: Denies abdominal pain, nausea, vomiting and diarrhea. - : Denies dysuria and urinary frequency. - MSK: Denies myalgia and joint pain. - SKIN: Denies rash and pruritus. - NEUROLOGICAL: Denies headache and syncope. - PSYCHIATRIC: Denies recent changes in mood. Denies anxiety and depression. [facility] Past Medical History Medical History Asthma GERD (gastroesophageal reflux disease) History of fibromyalgia Hypertension Hypothyroidism Parkinson disease Sciatica Surgical History Surgical History History of cholecystectomy History of laparoscopic appendectomy 12/11/23 PDC Family History Family History Mother Cardiac abnormality Social History Social History Smoking status: Never smoker Alcohol intake: former Substance use: never Do You Feel Safe in your Home?: Yes Lack of Transportation: No Lack of Food: Never True Current Housing: I Have Housing Concerned About Future Housing: No Difficulty Paying Gas/Electric Bills: No Difficulty Paying for Meds: No Currently Unemployed: No Education: Bachelor's Degree Difficulty w/ Childcare or Family Care: No Living arrangements: with family Additional living arrangements comments: HUSB Spiritual care concerns: No Meds Home Medications and Allergies Home Medications Medication Instructions Recorded Confirmed Type azelastine 137 mcg (0.1 %) nasal 137 mcg intranasal BID 12/10/23 08/17/24 History spray cetirizine 10 mg tablet 10 mg PO BID 12/10/23 08/17/24 History famotidine 40 mg tablet 40 mg PO BID 12/10/23 08/17/24 History gabapentin 100 mg capsule 100 mg PO BID 12/10/23 08/17/24 History metoprolol succinate 50 mg 25 mg PO QAM 12/10/23 08/17/24 History tablet,extended release 24 hr dicyclomine 10 mg capsule 10 mg PO QID PRN Abdominal Pain 12/11/23 08/17/24 History indomethacin 50 mg capsule 50 mg PO BID 12/11/23 08/17/24 History magnesium 400 tablet PO DAILY 12/11/23 08/17/24 History nortriptyline 10 mg capsule 30 mg PO HS 12/11/23 08/17/24 History albuterol sulfate 90 mcg/actuation 2 puff inhalation Q4-6H PRN 03/26/24 08/17/24 History aerosol inhaler Shortness Of Breath Or Wheezing carbidopa 25 mg-levodopa 100 mg 1.5 tablet PO QID 03/26/24 08/17/24 History tablet cholecalciferol (vitamin D3) 50 50 mcg PO DAILY 03/26/24 08/17/24 History mcg (2,000 unit) capsule docusate sodium 100 mg capsule 100 mg PO BID PRN Constipation 03/26/24 08/17/24 History (Colace) fluticasone fur. 200 mcg-umeclid 1 inh inhalation QAM 03/26/24 08/17/24 History 62.5 mcg-vilant 25 mcg inhalat.powder (Trelegy Ellipta) fluticasone propionate 50 2 spray intranasal BID 03/26/24 08/17/24 History mcg/actua
[2024-08-17] MEDS: GABAPENTIN 100 MG CAPSULE PO (20:51)
[2024-08-17] MEDS: CARBIDOPA/LEVODOPA 12.5/50 MG TABLET 1 TABLET PO (20:51)
[2024-08-17] MEDS: LORATADINE 10 MG TABLET PO (20:51)
[2024-08-17] MEDS: CARBIDOPA/LEVODOPA 25/100 MG TABLET 1 TABLET PO (20:51)
[2024-08-17] MEDS: NORTRIPTYLINE HCL 10 MG CAPSULE 30 MG PO (20:51)
[2024-08-17] MEDS: FAMOTIDINE 20 MG TABLET 40 MG PO (20:51)
[2024-08-18] VITALS (10 sets, daily range): BP systolic 96–124; BP diastolic 51–78; PULSE 62–93; RESP 16–18; TEMP 36.4–36.9; O2SAT 97–100
[2024-08-18 04:43] LABS: Basophils Percent Auto 0.5 % (0.2-1.2); Eosinophils Absolute Auto 0.1 K/mm3 (0-0.3); Eosinophils Percent Auto 3.1 % (0-4.4); Hematocrit 36.7 % (37.0-47.0); Hemoglobin 11.5 g/dL (12.0-15.0); Immature Granulocyte Absolute 0.01 K/mm3 (0.00-0.031); Immature Granulocyte Percent A 0.2 % (0-0.5); Lymphocytes Absolute Auto 2.22 K/mm3 (0.9-3.2); Lymphocytes Percent Auto 53.2 % (18.3-44.2); Mean Corpuscular HGB Conc 31.3 g/dl (32-36); Mean Corpuscular Volume 92.4 fl (80-100); Mean Platelet Volume 9.3 fl (7.4-10.4); Monocytes Absolute Auto 0.4 K/mm3 (0.1-0.6); Monocytes Percent Auto 8.4 % (2.6-8.5); Neutrophils Absolute Auto 1.4 K/mm3 (1.3-6.7); Neutrophils Percent Auto 34.6 % (45.5-73.1); Platelet Count Result 311 k/mm3 (150-375); Red Blood Count 3.97 M/mm3 (4.2-5.4); Red Cell Distribution Width 13.7 % (11.5-14.5); White Blood Count 4.2 K/mm3 (4.5-10.0)
[2024-08-18 04:59] LABS: Anion Gap 9 mmol/L (4-12); Blood Urea Nitrogen 10 mg/dL (7-17); Calcium 8.8 mg/dL (8.4-10.2); Carbon Dioxide 24 mmol/L (22-30); Chloride 108 mmol/L (98-107); Estimated CRCL calculation 80 ml/min; Estimated Glomerular Filt Rate > 60; Glucose 96 mg/dL (65-110); Sodium 141 mmol/L (137-145)
[2024-08-18] MEDS: AZELASTINE HCL NASAL 0.1% 137 MCG/SPR 30 ML BTL 1 SPRAY NASAL (08:48)
[2024-08-18] MEDS: FAMOTIDINE 20 MG TABLET 40 MG PO (08:49)
[2024-08-18] MEDS: GABAPENTIN 100 MG CAPSULE PO (08:49)
[2024-08-18] MEDS: CHOLECALCIFEROL 1,000 UNITS TABLET 2000 UNITS PO (08:49)
[2024-08-18] MEDS: LORATADINE 10 MG TABLET PO (08:49)
[2024-08-18] MEDS: METOPROLOL SUCCINATE EXT REL 25 MG TABCR PO (08:49)
[2024-08-18] MEDS: FLUTICASONE PROPIONATE 0.05% NA SPR 16 GM BTL (*BKC) 2 SPRAY NASAL (08:49)
[2024-08-18] MEDS: CARBIDOPA/LEVODOPA 25/100 MG TABLET 1 TABLET PO (08:49)
[2024-08-18] MEDS: CARBIDOPA/LEVODOPA 12.5/50 MG TABLET 1 TABLET PO (08:49)
[2024-08-18] MEDS: FLUTICASONE/UMECLIDIN/VILANTER 200-62.5-25 MCG ELLIPTA 1 PUFF INHALATION (09:21)
--- NOTE | 2024-08-18 10:23 | PM.DS ---
DS: Admitting Diagnosis Discharge Date 08/18/2024 Admitting Diagnosis Chest pain DS: Discharge Diagnosis Discharge Diagnosis (1) Chest pain: Code(s): R07.9 - Chest pain, unspecified Status: Acute (2) GERD (gastroesophageal reflux disease): Code(s): K21.9 - Gastro-esophageal reflux disease without esophagitis Status: Acute (3) Hypertension: Code(s): I10 - Essential (primary) hypertension Status: Acute DS: Summary Hospital Course Hospital Course: This is a 63-year-old female who presented to the hospital with chest pain that woke her up from sleep earlier today. Nonradiating atypical chest pain. Initial troponin negative. EKG with nonspecific ST-T changes. Labs unremarkable. Heart score of 4. She was admitted for rule out ACS serial troponin was done which remained negative. 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 She will follow-up with cardiology as an outpatient basis Hypertension Hypothyroidism Parkinson's disease History of fibromyalgia GERD Asthma DVT prophylaxis SCDs Code status full code Time Spent with Patient Time attestation: Total time spent providing and/or coordinating discharge services: 45 minutes Exam Narrative: GENERAL: Well-developed, well-nourished, and in no acute distress. HEAD: Normocephalic, atraumatic. EYES: PERRLA and EOMI. CHEST: Clear to auscultation. No respiratory distress. No wheezes rales or rhonchi HEART: Regular rate and rhythm. No murmur heard. Normal peripheral pulses. ABDOMEN: Soft, nontender, nondistended, normal active bowel sounds. EXTREMITIES: Normal range of motion. No edema. SKIN: Warm, dry, no rash. NEURO: Alert and oriented x3. No focal deficit. M PSYCH: Normal mood and affect. DS: Data Data Completed and Pending Labs on day of discharge: Labs from last 24 hours 08/18/24 08/17/24 08/17/24 04:19 14:09 11:33 WBC 4.2 L RBC 3.97 L Hgb 11.5 L Hct 36.7 L MCV 92.4 MCH 29.0 MCHC 31.3 L RDW 13.7 Plt Count 311 MPV 9.3 Immature Gran % (Auto) 0.2 Neut % (Auto) 34.6 L Lymph % (Auto) 53.2 H [place] % (Auto) 8.4 Eos % (Auto) 3.1 Baso % (Auto) 0.5 Lymph # (Auto) 2.22 [place] # (Auto) 0.4 Eos # (Auto) 0.1 Baso # (Auto) 0.0 Abs Immat Gran (auto) 0.01 Absolute Neuts (auto) 1.4 Absolute Nucleated RBC 0.000 Nucleated RBC % 0.0 Sodium 141 Potassium 4.0 Chloride 108 H Carbon Dioxide 24 Anion Gap 9 BUN 10 Creatinine 0.60 L Estim Creat Clear Calc 80 Estimated GFR > 60 Glucose 96 Calcium 8.8 Troponin I < 0.012 < 0.012 Imaging Radiologist's impression: ITS Impressions Chest X-Ray 08/17/24 09:05 IMPRESSION: 1. No acute cardiopulmonary disease. Discharge Plan Discharge Attending physician on discharge: Francisco Javier Doran Consulting providers: Juan C Sen Discharging Clinician: Francisco Javier Doran Anticipated Discharge Date/Time: 08/18/24 10:21 Patient Disposition: Home, Self-Care Activity: as tolerated Diet: heart healthy Patient Instructions: Antibiotic Form Stand Alone Forms: General Discharge Information Follow-up/Referrals: Jason,Rodney Talley MD [Primary Care Provider] - 1 Week Discharge Medications: Continued docusate sodium [Colace] 100 mg capsule 100 mg PO BID PRN (Reason: Constipation) carbidopa-levodopa 25-100 mg Tablet 1.5 tablet PO QID albuterol sulfate 90 mcg/actuation HFA aerosol inhaler 2 puff INHALATION Q4-6H PRN (Reason: Shortness Of Breath Or Wheezing) Trelegy Ellipta 200-62.5-25 mcg blister with device 1 inh INHALATION QAM fluticasone propionate 50 mcg/actuation spray,suspension 2 spray INTRANASAL BID cholecalciferol (vitamin D3) 50 mcg (2,000 unit) Capsule 50 mcg PO DAILY hydrocodone-acetam
== END 2024-08-18 11:29 | disposition home or self-care (01) ==
LOC: ANHED 08:36 → ANHIMU 09:57
PROVIDERS: Admitting Provider Internal Medicine; Emergency Provider Preventive Medicine Aerospace Medicine; PCP Family Medicine; Visit Provider Internal Medicine
DX: R07.89 Other chest pain (principal); K21.9 Gastro-esophageal reflux disease without esophagitis; I10 Essential (primary) hypertension; G20.A1 Parkinson's disease without dyskinesia, without mention of fluctuations; R51.9 Headache, unspecified; J45.909 Unspecified asthma, uncomplicated; M79.7 Fibromyalgia; E03.9 Hypothyroidism, unspecified; M54.30 Sciatica, unspecified side; Z79.899 Other long term (current) drug therapy
CPT/HCPCS: 36415; 71046; 80048; 80053; 83690; 84484; 85025; 85610; 85730; 93005; 94640; 99285; A9270; G0378